=== PATIENT | female | born 1955 | race Caucasian/White ===

== ENCOUNTER 2019-02-08 09:21 | Outpatient (CLI) | payer OTHER ==
[2019-02-08 17:39] LABS: BUN - BLOOD UREA NITROGEN 28 mg/dL (6-20); CALCIUM 9.6 mg/dL (8.5-10.3); CARBON DIOXIDE - CO2 24 mmol/L (21-32); CHLORIDE 106 mmol/L (101-111); CHOL/HDL RATIO 3.7 (<4.4); CHOLESTEROL 151 mg/dL; CREATININE 0.9 mg/dL (0.4-1.0); GFR - MDRD 64 (>89); GLUCOSE 103 mg/dL (70-100); HDL CHOLESTEROL 41 mg/dL; LDL CHOLESTEROL,CALCULATED 88 mg/dL; LDL/HDL RATIO 2.1 (<4.4); SODIUM 143 mmol/L (135-145); VLDL CHOLESTEROL 22 mg/dL
[2019-02-08 18:20] LABS: HB2 TOTAL 13.6 g/dL; HEMOGLOBIN A1C 0.56 g/dL; HEMOGLOBIN A1C % 5.9 % (4.6-6.2)
== END 2019-02-08 09:22 | disposition home or self-care (01) ==
LOC: LAB.S 09:21
PROVIDERS: ATTEND Internal Medicine
DX: E11.9 Type 2 diabetes mellitus without complications (principal); E78.5 Hyperlipidemia, unspecified; I10 Essential (primary) hypertension
CPT/HCPCS: 36415; 80048; 80061; 83036; 83721

== ENCOUNTER 2019-02-19 12:49 | Outpatient (CLI) | payer OTHER | END 2019-02-19 12:50 | disposition home or self-care (01) | LOC: RT 12:49 | PROVIDERS: ATTEND Internal Medicine | DX: R07.9 Chest pain, unspecified (principal) | CPT/HCPCS: 93005 ==

== ENCOUNTER 2019-03-06 15:35 | Outpatient (CLI) | payer OTHER ==
[2019-03-06 18:48] LABS: CALCIUM 10.4 mg/dL (8.5-10.3); CREATININE 0.8 mg/dL (0.4-1.0)
== END 2019-03-06 15:36 | disposition home or self-care (01) ==
LOC: LAB.S 15:35
PROVIDERS: ATTEND Internal Medicine
DX: I10 Essential (primary) hypertension (principal)
CPT/HCPCS: 36415; 80048

== ENCOUNTER 2019-04-06 13:22 | Outpatient (CLI) | payer OTHER ==
[2019-04-06 18:34] LABS: HB2 TOTAL 13.4 g/dL; HEMOGLOBIN A1C 0.58 g/dL; HEMOGLOBIN A1C % 6.1 % (4.6-6.2)
[2019-04-07 10:33] LABS: HEPATITIS C ANTIBODY NON-REACTIVE (NON-REACTIVE)
== END 2019-04-06 13:23 | disposition home or self-care (01) ==
LOC: LAB.S 13:22
PROVIDERS: ATTEND Internal Medicine
DX: J30.9 Allergic rhinitis, unspecified (principal); R07.9 Chest pain, unspecified; J44.9 Chronic obstructive pulmonary disease, unspecified; F32.9 Major depressive disorder, single episode, unspecified; E11.9 Type 2 diabetes mellitus without complications; E78.5 Hyperlipidemia, unspecified; I10 Essential (primary) hypertension; G47.33 Obstructive sleep apnea (adult) (pediatric); I77.9 Disorder of arteries and arterioles, unspecified; Z11.59 Encounter for screening for other viral diseases
CPT/HCPCS: 36415; 83036; 86803

== ENCOUNTER 2019-07-17 10:14 | Outpatient (CLI) | payer BC, OTHER ==
[2019-07-17 16:38] VITALS: BP 85/46
--- NOTE | 2019-07-17 16:38 | SLEEP CARE CONSULTATION ---
Information from patient questionnaire entered by Norma Reid. I have reviewed and concur with the information entered by Norma Reid. This document represents the service I personally performed and the decisions made by me, Castillo Main MD, [facility]. History of Present Illness Reason for Visit: New patient, Previously diagnosed sleep apnea, sleep apnea on CPAP therapy Chief Complaint: reports: Insomnia, Unrefreshed sleep, Snoring, Excessive daytime sleepiness, Observed pauses in breathing, Fatigue, Frequent awakenings at night, Other (sleep apnea) Duration of Symptoms: 10 years Usual bedtime: 11pm - 12am Time it takes to fall asleep: from 15 mins to hours Snores at night: Yes Observed to quit breathing while asleep: Yes Sleeps alone due to snoring: No Number of times waking at night: 5-10 Reasons for waking at night: reports: Other (not sure) Toss, Turn, or Twitch while sleeping: No Recalls having dreams: Yes Usually gets out of bed at: 8-9 am Feels refreshed in the morning: No Morning headache: No Sleepy or fatigued during the day: Yes Ever fallen asleep while driving: No Takes day naps: Yes Dreams during day naps: Yes Prior sleep studies: Yes Year and Where: 5ish years ago, [facility] Additional HPI information: I had the pleasure of seeing Ms. Vargas today regarding obstructive sleep apnea- hypopnea. As you know, she is a 64 year old lady who was diagnosed with the sleep-disordered breathing at [facility] about 5 years ago. The results are not available. She was prescribed a CPAP device set at 5 8 cmH 2O. She uses the ResMed AirSense 10 AutoSet every night and all night. The compliance data show usage in 180 out of the past 180 nights, averaging 7.2 hours a night. The > 4 hour compliance rate for the past 30 days is 96%. The residual AHI is 0.9 and average air leak is 0 L/minute. She wears nasal pillows but complains that they hurt her nose. She gets his supplies from [facility] itself. She finds the treatment very helpful. - Parasomnia Symptoms Ever been unable to move upon waking from sleep: No Ever felt weak in the knees when startled or emotional: No Bothered by creepy, crawly, restless sensations in legs: No Problems with memory or concentration: Yes CPAP Compliance Data - Data Reviewed with Patient Average duration of nightly device use: 7.1 Compliance rate %: 96 (180 days) Current pressure setting (cmH2O): 5-8 Humidity settin Average residual AHI: 0.9 Subjective Initial [place] Sleepiness Scale score: 9 Past Medical History Past Medical History: reports: Hypertension, Diabetes, Depression, Other (stiff heart, PAD, Asthma/COPD, S/p tonsillectomy) Social History The patient's occupation is not employed. Patient is Single and lives in [place]. Have you smoked in the past 12 months: No Cigarettes per day (20/pack): 20 Years of smokin Quit date: 2011 Smoking Pack Years: 40.0 Alcohol use: Yes Alcohol amount and frequency: 3-4 a day Caffeine use: Yes Caffeine amount and frequency: 3-4 diet cokes and 1 coffee Family History Family history of sleep disordered breathing: Yes Family Hx Sleep Apnea: Sibling: Sleep apnea - Treated Allergies and Home Medications Known drug allergies: Yes Drug allergies reviewed: Yes Home medication list reviewed: Yes Allergy and home medication list: Current Medications: furosemide, Lipitor, lisinopril, metformin, sertraline, metoprolol, and aspirin. Allergies: no known drug allergies Review of Systems Weight gain over past 5 years: 40 Weight loss over past 5 years: 25 Cardiovascular: reports: high blood pressure Respiratory: reports: shortness of breath Gastrointestinal: reports: diarrhea Neurological: denies: headaches, seizure, head trauma, disorientation, speech dysfunction, gait or balance problems, fainting or unconsciousness, other Psychiatric: reports: depression Ear/Nose/Throat: reports: tonsillectomy, wisdom teeth removed Endocrine: reports: sluggishness Musculoskeletal: denies: joint pain, neck pain, back pain, joint swelling, muscle pain or cramping, mobility problems, other Immunologic: reports: sneezing Physical Exam Vital signs obtained and entered by: Dr. Main Blood Pressure: 85/46 Cuff size: regular Heart Rate: 53 O2 Saturation: 97 Height: 5 ft 5 in Weight: 250 lb Body Mass Index: 41.5 BMI Classification: Obesity Class 3 Neck circumference: 17 Mood/affect: Normal. HEENT: No craniofacial malformation Nostrils: patent to airflow Turbinates: normal Septum: midline Mouth and throat: narrow oropharynx Soft palate: normal Hard palate: normal Uvula: normal, long Uvula visualization: 25% Mallampati Class III Tongue: normal in size Tonsils: absent bilaterally Chin and jaw: normal size and position Neck: normal w/o lymphadenopathy or thyromegaly Heart: regular rate and rhythm Lungs: clear bilaterally Abdomen: soft, non-tender Extremities: no edema or clubbing Neurologic: intact, no focal deficits Impression and Plan IMPRESSION: 1. Obstructive Sleep Apnea-Hypopnea Syndrome, of unknown severity, as previously diagnosed. The patient has had good treatment compliance. The current pressure setting appears effective and comfortable. The patient experiences improvement on the treatment. Narrow oropharynx and obesity are common predisposing factors for obstructive sleep apnea-hypopnea syndrome. Pathophysiology of sleep- disordered breathing was discussed. I recommend proceeding to polysomnography to confirm the diagnosis and to assess severity. If he has significant sleep disordered breathing, a manual CPAP titration study will also be performed to find the optimal treatment pressure. I informed the patient of what the sleep studies involve and after some discussion, she agreed to proceed. Plan: 1. Prescription made for CPAP supplies, so that she may switch durable medical supplier. 2. Try Respironics DreamWear nasal cushion mask and ResMed N30i mask. 3. Avoid alcohol, sedative and muscle relaxant around bedtime. 4. Return for follow up in a year or earlier if there is any problem. I spent 100% of this visit face to face with the patient with greater than 50% of this was spent time counseling the patient and coordination of care.
== END 2019-07-17 10:15 | disposition home or self-care (01) ==
LOC: SC 10:14
PROVIDERS: ATTEND Internal Medicine Pulmonary Disease
DX: G47.33 Obstructive sleep apnea (adult) (pediatric) (principal); E66.9 Obesity, unspecified; Z68.41 Body mass index [BMI] 40.0-44.9, adult
CPT/HCPCS: 99203; 99212

== ENCOUNTER 2019-07-20 10:47 | Outpatient (CLI) | payer BC | END 2019-07-20 10:48 | disposition home or self-care (01) | LOC: LAB.S 10:47 | PROVIDERS: ATTEND Internal Medicine | DX: J30.9 Allergic rhinitis, unspecified (principal); R07.9 Chest pain, unspecified; J44.9 Chronic obstructive pulmonary disease, unspecified; F32.9 Major depressive disorder, single episode, unspecified; E11.9 Type 2 diabetes mellitus without complications; E78.5 Hyperlipidemia, unspecified; I10 Essential (primary) hypertension; G47.33 Obstructive sleep apnea (adult) (pediatric); I77.9 Disorder of arteries and arterioles, unspecified | CPT/HCPCS: 36415; 80048 ==

== ENCOUNTER 2019-07-24 08:00 | Outpatient (CLI) | payer BC ==
[2019-07-25 10:59] LABS: CALCIUM 9.1 mg/dL (8.5-10.3); CREATININE 0.7 mg/dL (0.4-1.0)
== END 2019-07-24 23:59 | disposition home or self-care (01) ==
LOC: LAB.S 08:00
PROVIDERS: ATTEND Internal Medicine
DX: J30.9 Allergic rhinitis, unspecified (principal); R07.9 Chest pain, unspecified; J44.9 Chronic obstructive pulmonary disease, unspecified; F32.9 Major depressive disorder, single episode, unspecified; E11.9 Type 2 diabetes mellitus without complications; E78.5 Hyperlipidemia, unspecified; I10 Essential (primary) hypertension; G47.33 Obstructive sleep apnea (adult) (pediatric); I77.9 Disorder of arteries and arterioles, unspecified
CPT/HCPCS: 80048

== ENCOUNTER 2019-08-02 10:59 | Outpatient (CLI) | payer BC | END 2019-08-02 11:00 | disposition home or self-care (01) | LOC: DI 10:59 | PROVIDERS: ATTEND Internal Medicine | DX: Z53.9 Procedure and treatment not carried out, unspecified reason (principal) ==

== ENCOUNTER 2019-08-15 13:18 | Outpatient (CLI) | payer BC ==
[~2019-08-15 13:18] MED LIST: ALBUTEROL NEB 2.5 MG/3 ML INH SCH
== END 2019-08-15 13:19 | disposition home or self-care (01) ==
LOC: RT 13:18
PROVIDERS: ATTEND Internal Medicine
DX: J44.9 Chronic obstructive pulmonary disease, unspecified (principal)
CPT/HCPCS: 94060; 94727; 94729

== ENCOUNTER 2019-08-15 14:52 | Outpatient (CLI) | payer BC ==
--- NOTE | 2019-08-20 09:43 | CT Report ---
Reason: EX SMOKER Procedure Date: 08/15/2019 Accession Number: [id number] / [id number] Procedure: CT - Low Dose Lung Cancer Screen CPT Code: Final Report FULL RESULT: EXAM CT LUNG SCREEN EXAM DATE: 08/15/2019 03:24 PM. HISTORY: 64-year-old patient with [id number]-[id number] smoking history. Currently smoking: No. Years since quittin. COMPARISON: THORAX 03 LOW DOSE LUNG WO (ADULT) 10/20/2016. TECHNIQUE: CT examination of the entire thorax without contrast was performed using low-dose technique. Thin section coronal, axial, sagittal and MIP axial images were obtained. In accordance with CT protocol optimization, one or more of the following dose reduction techniques were utilized for this exam: automated exposure control, adjustment of mA and/or KV based on patient size, or use of iterative reconstructive technique. FINDINGS: Nodules: Right upper lobe: None. Right middle lobe: Stable 3 mm perifissural nodule along lateral aspect of minor fissure on series 4 image 81. Stable 4 mm right middle lobe lung nodule on image 95. Right lower lobe: None. Left upper lobe: None. Left lower lobe: None. Emphysema: None. Pleura: Unremarkable. Aorta: Unremarkable. Mediastinum: A 1.2 x 1.0 cm low-attenuation region within the thoracic inlet to left of esophagus previously measured 1.4 x 1.2 cm. This could represent a stable small lymph node or potentially a duplication cyst. No adjacent soft tissue stranding. Coronary calcifications: Moderate. Other pulmonary findings: None. Other extrapulmonary findings: Midline upper abdominal hernia contains a portion of transverse colon. Although partially imaged, appearance is similar to prior CT. Left periaortic surgical clips, question prior left nephrectomy. Ovoid probable sebaceous cyst in the superficial upper back soft tissues near midline measures up to 2.1 cm, previously 3.5 cm. Interval decrease in size. A 1.1 cm fat-containing region previously measuring 1.3 cm posteromedial to spleen near the left hemidiaphragm has become partially calcified, question fat necrosis. No suspicious mass. IMPRESSION: Lung-RADS ASSESSMENT CATEGORY: 2 - benign appearance or behavior. Probability of malignancy: Less than 1%. RECOMMENDATION: Continue annual screening with LDCT in 12 months. RADIA
== END 2019-08-15 14:53 | disposition home or self-care (01) ==
LOC: DI 14:52
PROVIDERS: ATTEND Internal Medicine
DX: Z12.2 Encounter for screening for malignant neoplasm of respiratory organs (principal); J44.9 Chronic obstructive pulmonary disease, unspecified; Z87.891 Personal history of nicotine dependence
CPT/HCPCS: 94060; 94727; 94729; G0297

== ENCOUNTER 2019-08-22 10:31 | Outpatient (CLI) | payer BC ==
[2019-08-22 17:11] LABS: HEMOGLOBIN A1C 0.55 g/dL
== END 2019-08-22 10:32 | disposition home or self-care (01) ==
LOC: LAB.S 10:31
PROVIDERS: ATTEND Internal Medicine
DX: I10 Essential (primary) hypertension (principal); R07.9 Chest pain, unspecified; J44.9 Chronic obstructive pulmonary disease, unspecified; F32.9 Major depressive disorder, single episode, unspecified; E11.9 Type 2 diabetes mellitus without complications; E78.5 Hyperlipidemia, unspecified; G47.33 Obstructive sleep apnea (adult) (pediatric); I77.9 Disorder of arteries and arterioles, unspecified
CPT/HCPCS: 36415; 83036

== ENCOUNTER 2019-08-28 13:48 | Outpatient (CLI) | payer BC ==
--- NOTE | 2019-08-28 16:49 | Mammography Report ---
Reason: ABN MAMMO-RT BREAST MASS 6MO FU Procedure Date: 08/28/2019 Accession Number: [id number] / [id number] Procedure: [facility] - Diagnostic Dig Bilat CPT Code: Final Report FULL RESULT: EXAM: Diagnostic Dig Bilat DATE: 08/28/2019 2:57 PM CLINICAL HISTORY: Diagnostic examination. History of nulliparity. History of benign right breast biopsy. The examination is a 6 month follow-up of a right breast nodule. TECHNIQUE: (B) - Bilateral CC and MLO views were obtained. Right breast spot MLO and right breast ML images are obtained. COMPARISON: 12/26/2017 and 12/15/2017. PARENCHYMAL PATTERN: (D) - The breast(s) demonstrate(s) heterogeneously dense fibroglandular parenchyma. FINDINGS: The previously described 0.5 cm nodule in the posterior right breast in the lower outer quadrant is detected 12 cm deep to the nipple at the 6:00 position and characterized on MLO image 24 and CC image 21 as isodense with well defined border measuring up to 0.5 cm without significant interval change, probably benign. There are no suspicious masses, calcifications, or areas of distortion. IMPRESSION: Probably Benign. BI-RADS category 3. RECOMMENDATION: (6MOS) - Recommend 6 month follow-up exam. Right breast mammography. BI-RADS CATEGORY: (3) - Probably Benign. STANDARD QUALIFYING STATEMENTS: 1. This examination was not reviewed with the aid of Computer-Aided Detection (CAD). 2. A negative or benign imaging report should not preclude biopsy if clinically suspicious findings are present. 3. Dense breasts may obscure an underlying neoplasm. 4. This examination was reviewed with the aid of 3D breast imaging (tomosynthesis).
== END 2019-08-28 13:49 | disposition home or self-care (01) ==
LOC: DI 13:48
PROVIDERS: ATTEND Internal Medicine
DX: N63.13 Unspecified lump in the right breast, lower outer quadrant (principal)
CPT/HCPCS: 77066

== ENCOUNTER 2020-07-08 10:44 | Outpatient (CLI) | payer BC ==
--- NOTE | 2020-07-09 07:24 | Mammography Report ---
UNILATERAL RIGHT DIGITAL DIAGNOSTIC MAMMOGRAM 3D/2D: 07/08/2020 CLINICAL: Additional evaluation requested from prior study. Comparison is made to exams dated: 08/28/2019 mammogram, 12/26/2017 ultrasound, 12/26/2017 mammogram, and 12/15/2017 mammogram - [facility]. The tissue of right breast is heterogeneously de nse. This may lower the sensitivity of mammography. There is a stable benign 5 mm oval mass with a circumscribed margin in the right breast at 6 o'clock posterior depth. This mass has been stable dating back to the prior exam from 12/15/2017, and is the refore considered benign. No other significant masses or calcifications are seen in the breast. IMPRESSION: BENIGN There is no mammographic evidence of malignancy. A 1 year screening mammogram is recommended. This exam was interpreted at Station ID: [id number]. NOTE: For mammograms, a report in lay terms will be sent to the patient. Approximately 15% of breast malignancies will not be visualized mammographically. In the management of a palpable breast mass, a negative mammogram must not discourage biopsy of a clinically suspicious lesion. Electronically Signed By: Julius lynch/rachel:07/08/2020 13:07:39 ACR BI-RADS Category 2: Benign Finding(s) 3342F PARENCHYMAL PATTERN: (D) - The breast(s) demonstrate(s) heterogeneously dense fibroglandular master priest. BI-RADS CATEGORY: (2) - 2 RECOMMENDATION: (ANNUAL) - Recommend routine annual screening mammography. [id number] 1 year screening LATERALITY: (B)
== END 2020-07-08 10:45 | disposition home or self-care (01) ==
LOC: DI 10:44
PROVIDERS: ATTEND Internal Medicine
DX: N63.15 Unspecified lump in the right breast, overlapping quadrants (principal)

== ENCOUNTER 2020-08-19 19:44 | Outpatient (CLI) | payer BC | END 2020-08-19 19:45 | disposition short-term general hospital (02) | LOC: EMS 19:44 | PROVIDERS: ATTEND Emergency Medicine | DX: R06.09 Other forms of dyspnea (principal) | CPT/HCPCS: A0425; A0429 ==

== ENCOUNTER 2020-08-19 20:22 | Inpatient (IN) | payer BC ==
--- NOTE | 2020-08-19 20:31 | ED Physician Documentation ---
PD HPI DYSPNEA - Stated complaint Stated Complaint: SOA - History obtained from History obtained from: Patient, EMS - History of Present Illness Timing - onset: How many weeks ago (1) Timing - details: Gradual onset, Waxing and waning Pain level max: 0 Pain level now: 0 Associated symptoms: Cough, Wheezing. No: Fever (Tmax 99.5), Hemoptysis, Chest pain / discomfort, Palpitations, Diaphoresis, Bilateral edema, Unilateral edema Similar symptoms before: Diagnosis (COPD but has not had symptoms this severe before) Recently seen: Not recently seen - Additional information Additional information: BIBA for dyspnea. Patient has COPD but does not use oxygen at home. She occasionally uses an albuterol MDI (she estimates 1-2 x/week). Patient has had one week of gradually worsening dyspnea, particularly with exertion. Earlier today, she was helping clear branches from a downed tree from her yard and street, and this resulted in significantly worse dyspnea. She also has had increasingly frequent productive cough over past few days. Tmax 99.5. Medics found patient to have 80% pulse ox on room air, gave duoneb and applied 4.5 L/min NC oxygen, and her pulse ox improved to 95%. She rapidly dropped back down to 79% when oxygen was briefly stopped during transfer from EMS stretcher to ED stretcher, but improves to mid 90s with resumption of 4.5 L/min NC oxygen Review of Systems Constitutional: denies: Fever, Chills, Sweats Eyes: reports: Reviewed and negative Ears: reports: Reviewed and negative Nose: reports: Reviewed and negative Throat: reports: Reviewed and negative Cardiac: reports: Reviewed and negative Respiratory: reports: Dyspnea, Cough, Wheezing. denies: Hemoptysis GI: reports: Reviewed and negative : reports: Reviewed and negative Skin: reports: Reviewed and negative Musculoskeletal: reports: Reviewed and negative Neurologic: reports: Reviewed and negative PD PAST MEDICAL HISTORY - Past Medical History Past Medical History: Yes Cardiovascular: Hypertension, High cholesterol Respiratory: COPD Endocrine/Autoimmune: Type 2 diabetes - Present Medications Home Medications: Ambulatory Orders Medication Instructions Recorded Confirmed Albuterol Sulfate [Proair Hfa 1 puffs PRN 08/19/20 Inhaler] Aspirin [Aspirin EC] 81 mg PO DAILY 08/19/20 08/19/20 Lisinopril [Zestril] 40 mg PO DAILY 08/19/20 08/19/20 Metoprolol Succinate [Toprol Xl] 75 mg PO DAILY 08/19/20 08/19/20 Rosuvastatin Calcium [Crestor] 20 mg PO DAILY 08/19/20 08/19/20 Sertraline [Zoloft] 50 mg PO DAILY 08/19/20 08/19/20 metFORMIN [Glucophage] 500 mg PO DAILY 08/19/20 08/19/20 - Allergies Allergies/Adverse Reactions: Allergies Allergy/AdvReac Type Severity Reaction Status Date / Time No Known Drug Allergies Allergy Verified 08/19/20 20:31 - Social History Does the pt smoke?: No PD ED PE NORMAL - Vitals Vital signs reviewed: Yes - General General: Alert and oriented X 3, No acute distress, Well developed/nourished - HEENT HEENT: Moist mucous membranes - Neck Neck: Supple, no meningeal sign - Cardiac Cardiac: RRR, No murmur - Respiratory Respiratory: No respiratory distress - Abdomen Abdomen: Soft, Non tender, Other (obese) - Derm Derm: Normal color, Warm and dry - Extremities Extremities: No edema - Neuro Neuro: Alert and oriented X 3 PD ED PE EXPANDED - Respiratory Respiratory: Wheezing (course bilateral wheezing and rhonchi all lung ansari), Rhonchi Results - Vitals Vitals: Vital Signs - 24 hr 08/19/20 08/19/20 08/19/20 20:31 20:40 21:06 Temperature 37.3 C Heart Rate 95 91 79 Respiratory 24 16 27 H Rate Blood Pressure 185/102 H 153/110 H O2 Saturation 79 L 97 97 08/19/20 08/19/20 08/19/20 21:30 22:00 22:05 Temperature 37.3 C 37.3 C 37.3 C Heart Rate 82 84 85 Respiratory 26 H 22 21 Rate Blood Pressure 164/107 H 255/131 H 213/93 H O2 Saturation 97 97 97 08/19/20 08/19/20 22:30 23:00 Temperature 37.3 C 36.7 C Heart Rate 89 84 Respiratory 21 26 H Rate Blood Pressure 238/105 H 197/81 H O2 Saturation 97 96 Oxygen O2 Source Nasal cannula Oxygen Flow Rate 4.5 - EKG (time done) No standard instances Rate: Rate (enter#) (81) Rhythm: NSR Dunbar: Normal Intervals: Normal IL QRS: Normal Ischemia: Normal ST segments - Labs Labs: Laboratory Tests 08/19/20 08/19/20 08/19/20 21:07 21:07 21:07 WBC 11.6 H RBC 3.94 L Hgb 12.8 Hct 39.2 MCV 99.5 H MCH 32.5 H MCHC 32.7 RDW 12.8 Plt Count 146 MPV 9.7 Neut # (Auto) 9.6 H Lymph # (Auto) 1.0 L [place] # (Auto) 0.8 Eos # (Auto) 0.1 Baso # (Auto) 0.0 Absolute Nucleated RBC 0.00 Nucleated RBC % 0.0 Sodium 140 Potassium 3.6 Chloride 101 Carbon Dioxide 26 Anion Gap 13.0 BUN 22 H Creatinine 0.8 Estimated GFR (MDRD) 72 L Glucose 142 H Calcium 9.5 Total Bilirubin 1.2 H AST 29 ALT 31 Alkaline Phosphatase 62 Troponin I High Sens 11.6 B-Natriuretic Peptide Total Protein 7.4 Albumin 4.2 Globulin 3.2 Albumin/Globulin Ratio 1.3 Lipase 31 Nasal Adenovirus (PCR) Nasal B. parapertussis DNA (PCR) Nasal Coronavir 229E PCR Nasal Coronavir HKU1 PCR Nasal Coronavir NL63 PCR Nasal Coronavir OC43 PCR Nasal Enterovir/Rhinovir PCR Nasal Influenza B PCR Nasal Influenza A PCR Nasal Parainfluen 1 PCR Nasal Parainfluen 2 PCR Nasal Parainfluen 3 PCR Nasal Parainfluen 4 PCR Nasal RSV (PCR) Nasal B.pertussis DNA PCR Nasal C.pneumoniae (PCR) Krish Human Metapneumo PCR Nasal M.pneumoniae (PCR) Nasal SARS-CoV-2 (PCR) 08/19/20 08/19/20 21:10 22:40 WBC RBC Hgb Hct MCV MCH MCHC RDW Plt Count MPV Neut # (Auto) Lymph # (Auto) [place] # (Auto) Eos # (Auto) Baso # (Auto) Absolute Nucleated RBC Nucleated RBC % Sodium Potassium Chloride Carbon Dioxide Anion Gap BUN Creatinine Estimated GFR (MDRD) Glucose Calcium Total Bilirubin AST ALT Alkaline Phosphatase Troponin I High Sens B-Natriuretic Peptide 309 H Total Protein Albumin Globulin Albumin/Globulin Ratio Lipase Nasal Adenovirus (PCR) NOT DETECTED Nasal B. parapertussis DNA (PCR) NOT DETECTED Nasal Coronavir 229E PCR NOT DETECTED Nasal Coronavir HKU1 PCR NOT DETECTED Nasal Coronavir NL63 PCR NOT DETECTED Nasal Coronavir OC43 PCR NOT DETECTED Nasal Enterovir/Rhinovir PCR NOT DETECTED Nasal Influenza B PCR NOT DETECTED Nasal Influenza A PCR NOT DETECTED Nasal Parainfluen 1 PCR NOT DETECTED Nasal Parainfluen 2 PCR NOT DETECTED Nasal Parainfluen 3 PCR NOT DETECTED Nasal Parainfluen 4 PCR NOT DETECTED Nasal RSV (PCR) NOT DETECTED Nasal B.pertussis DNA PCR NOT DETECTED Nasal C.pneumoniae (PCR) NOT DETECTED Krish Human Metapneumo PCR NOT DETECTED Nasal M.pneumoniae (PCR) NOT DETECTED Nasal SARS-CoV-2 (PCR) NOT DETECTED - Rads (name of study) chest xray Radiology: Prelim report reviewed, See rad report PD MEDICAL DECISION MAKING - ED course Complexity details: reviewed results, re-evaluated patient, considered differential, d/w patient ED course: Significant hypoxia in this patient who describes only mild COPD history, has never required oxygen and only uses MDI 2-3 times per week on average. She improved significantly with supplemental oxygen, duoneb (en route) and MDI albuterol in ED. also given IV solu-medrol. CXR s/o pulmonary edema (radiologist's interpretation includes bilateral pneumonia on differential, but H+P are not suggestive of pneumonia). Given lasix subsequent to CXR results. She does not h/o CHF nor peripheral/pulmonary edema. Will admit, monitor for improvement as she diureses Departure - Departure Disposition: 66 [facility] DC/Xfer Clinical Impression: Hypoxia Pulmonary edema Qualifiers: Chronicity: acute Qualified Code(s): J81.0 - Acute pulmonary edema Condition: Stable Discharge Date/Time: 08/20/20 01:17
[2020-08-19] MEDS ORDERED: ALBUTEROL NEB 2.5 MG/3 ML INH STA (20:51)
[2020-08-19] MEDS ORDERED: methylPREDNISolone SUCCINATE 125 MG/2 ML VIAL IVP STA (20:51)
[2020-08-19 21:17] LABS: BASOPHILS % (AUTO) 0.3 %; EOSINOPHILS # (AUTO) 0.1 10^3/uL (0.0-0.7); EOSINOPHILS % (AUTO) 0.6 %; HCT - HEMATOCRIT 39.2 % (37.0-47.0); HGB - HEMOGLOBIN 12.8 g/dL (12.0-16.0); LYMPHOCYTES % (AUTO) 8.5 %; MEAN CORPUSCULAR HEMOGLOBIN 32.5 pg (27.0-31.0); MEAN CORPUSCULAR HGB CONC 32.7 g/dL (32.0-36.0); MEAN CORPUSCULAR VOLUME 99.5 fL (81.0-99.0); MEAN PLATELET VOLUME 9.7 fL (7.9-10.8); MONOCYTES # (AUTO) 0.8 10^3/uL (0.0-1.0); MONOCYTES % (AUTO) 6.9 %; NEUTROPHILS # (AUTO) 9.6 10^3/uL (1.5-6.6); NEUTROPHILS % (AUTO) 82.9 %; PLT - PLATELET COUNT 146 10^3/uL (130-450); RED BLOOD COUNT 3.94 10^6/uL (4.20-5.40); RED CELL DISTRIBUTION WIDTH 12.8 % (12.0-15.0); WHITE BLOOD COUNT 11.6 x10^3/uL (4.8-10.8)
[2020-08-19 21:26] LABS: ALBUMIN 4.2 g/dL (3.2-5.5); ALBUMIN/GLOBULIN RATIO 1.3 (1.0-2.2); BILIRUBIN,TOTAL 1.2 mg/dL (0.2-1.0); CALCIUM 9.5 mg/dL (8.5-10.3); CREATININE 0.8 mg/dL (0.4-1.0); POTASSIUM 3.6 mmol/L (3.5-5.0); TOTAL PROTEIN 7.4 g/dL (6.7-8.2)
[2020-08-19] MEDS ORDERED: ALBUTEROL 1 PUFF INH STA (21:27)
[2020-08-19] MEDS ORDERED: FUROSEMIDE 40 MG/4 ML VIAL IVP STA (22:06)
[2020-08-19 22:13] LABS: B. PARAPERTUSSIS- RESP PCR PAN NOT DETECTED; B. PERTUSSIS- RESP PCR PANEL NOT DETECTED; C. PNEUMONIAE- RESP PCR PANEL NOT DETECTED; CORONAVIRUS 229E-RESP PCR NOT DETECTED; CORONAVIRUS HKU1-RESP PCR NOT DETECTED; CORONAVIRUS NL63-RESP PCR NOT DETECTED; CORONAVIRUS OC43-RESP PCR NOT DETECTED; HUMAN METAPNEUMOVIRUS NOT DETECTED; INFLUENZA A- RESP PCR PANEL NOT DETECTED; INFLUENZA B - RESP PCR PANEL NOT DETECTED; M. PNEUMONIAE- RESP PCR PANEL NOT DETECTED; PARAINFLUENZA VIRUS 1 NOT DETECTED; PARAINFLUENZA VIRUS 2 NOT DETECTED; PARAINFLUENZA VIRUS 3 NOT DETECTED; PARAINFLUENZA VIRUS 4 NOT DETECTED; RHINOVIRUS/ENTEROVIRUS NOT DETECTED; RSV- RESP PCR PANEL NOT DETECTED; SARS-CoV-2 -RESP PCR PANEL NOT DETECTED
--- NOTE | 2020-08-19 22:45 | XRAY Report ---
PROCEDURE: Chest 1 View X-Ray INDICATIONS: chest pain TECHNIQUE: One view of the chest was acquired. COMPARISON: Chest CT without contrast, 08/15/2019. FINDINGS: Surgical changes and devices: None. Lungs and pleura: Bilateral interstitial and airspace infiltrates. No pleural effusions or pneumotho rax. Mediastinum: Mediastinal contours appear normal. Heart size is normal. Bones and chest wall: No suspicious bony lesions. Overlying soft tissues appear unremarkable. IMPRESSION: Bilateral interstitial and airspace infiltrates consistent with pulmonary edema or bilateral pneumoni a. Reviewed by: Yahaira Dickson MD on 08/19/2020 10:44 PM PST Approved by: Yahaira Dickson MD on 08/19/2020 10:44 PM PST Station ID: [id number]
[2020-08-19] MEDS ORDERED: NITROGLYCERIN 2% PASTE TOP STA (23:18)
[2020-08-19] MEDS ORDERED: ACETAMINOPHEN 325 MG TABLET PO PRN (23:22)
[2020-08-19] MEDS ORDERED: ONDANSETRON 4 MG/2 ML VIAL IVP PRN (23:22)
--- NOTE | 2020-08-19 23:26 | HISTORY & PHYSICAL EXAMINATION ---
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 She was outside cutting some wood that had fallen in her yard when she became dyspneic. She went into the house and checked her blood pressure and noticed it was very elevated so she called 911. She further explains that she had been mildly dyspneic earlier in the day but then it seemed to progressively worsen throughout the day. She has also not been feeling well for couple of days. She has been dyspneic with low energy. Her legs have also been more swollen for the past 1 week. She denies ever having COPD exacerbation and only uses her albuterol 1-2 times a week. When EMS arrived she was found to have a pulse ox of 80% on room air. She was given breathing treatment and placed on 4-1/2 L of oxygen via nasal cannula. Her oxygen saturation rapidly drops whenever she was off oxygen in the ED. Chest x-ray showed bilateral pulmonary edema. She was rhonchorous and had crackles upon presentation. She had a BNP of 309. She also had a systolic blood pressure as high as 230s. She was given Lasix 60 mg IV in the ED. By the time of my exam she was breathing more comfortably and speaking in full sentences. She had coarse breath sounds but no crackles or rhonchi. She denied chest pain, nausea or vomiting. She reported mild abdominal pain which had resolve by the time of arrival to the ED and chills. He was presented for admission for further treatment and work-up. History - Past Medical History Cardiovascular: reports: Hypertension, High cholesterol, Peripheral Vascular Disease Respiratory: reports: COPD Endocrine/Autoimmune: reports: Type 2 diabetes, Other (Obesity) GI: reports: Other (ventral hernia) : reports: Other (right solitary kidney) - Past Surgical History General: reports: Appendectomy, Other (partial colectomy) /DESK MAKER: reports: Hysterectomy, Oophrectomy, Other (left nephrectomy after renal infarct) Cardiovascular: reports: Other (?aortic stent) HEENT: reports: Tonsil/Adenoidectomy - Family & Social History Family History Comment/Other: Father had coronary artery disease and underwent a quadruple vessel bypass. He from dementia. Her mother from Alzheimer's. Social History Notes: She smoked 1 pack/day for 30 years. She quit smoking 9 years ago. She drinks 3-4 drinks most evenings. These are usually vodka mixed drinks. She denies any recreational substance use. - POLST Patient has POLST: No POLST Status: Full Code Meds/Allgy - Home Medications Home Medications: Ambulatory Orders Medication Instructions Recorded Confirmed Albuterol Sulfate [Proair Hfa 1 puffs PRN 08/19/20 Inhaler] Aspirin [Aspirin EC] 81 mg PO DAILY 08/19/20 08/19/20 Lisinopril [Zestril] 40 mg PO DAILY 08/19/20 08/19/20 Metoprolol Succinate [Toprol Xl] 75 mg PO DAILY 08/19/20 08/19/20 Rosuvastatin Calcium [Crestor] 20 mg PO DAILY 08/19/20 08/19/20 Sertraline [Zoloft] 50 mg PO DAILY 08/19/20 08/19/20 metFORMIN [Glucophage] 500 mg PO DAILY 08/19/20 08/19/20 - Allergies Allergies/Adverse Reactions: Allergies Allergy/AdvReac Type Severity Reaction Status Date / Time No Known Drug Allergies Allergy Verified 08/19/20 20:31 Review of Systems - Constitutional Constitutional: reports: Fatigue, Chills. denies: Fever - Eyes Eyes: denies: Pain, Irritation - Ears, Nose & Throat Ears, Nose & Throat: denies: Ear pain, Sore throat - Cardiovascular Cariovascular: reports: Edema, Exertional dyspnea. denies: Irregular heart rate, Chest pain, Lightheadedness, Syncope - Respiratory Respiratory: reports: SOB at rest, SOB with exertion. denies: Cough, Sputum production, Wheezing - Gastrointestinal Gastrointestinal: reports: Abdominal pain, Diarrhea. denies: Abdominal distention, Constipation, Nausea, Vomiting - Genitourinary Genitourinary: denies: Dysuria, Frequency, Urgency, Hematuria - Musculoskeletal Musculoskeletal: denies: Muscle pain, Back pain, Muscle aches - Integumentary Integumentary: denies: Rash, Pruritis, Lesions, Dryness - Neurological Neurological: denies: Focal weakness, Headache, Dizziness - Psychiatric Psychiatric: denies: Depression, Anxiety - Endocrine Endocrine: denies: Polyuria, Polydypsia - Hematologic/Lymphatic Hematologic/Lymphatic: denies: Anemia, Bruising, Petechiae Prior Level of Functionality: She is independent of activities of daily living Exam - Vital Signs Vital Signs: Vital Signs x48h Temp Pulse Resp BP Pulse Ox 08/19/20 23:00 36.7 C 84 26 H 197/81 H 96 08/19/20 22:30 37.3 C 89 21 238/105 H 97 08/19/20 22:05 37.3 C 85 21 213/93 H 97 08/19/20 22:00 37.3 C 84 22 255/131 H 97 08/19/20 21:30 37.3 C 82 26 H 164/107 H 97 08/19/20 21:06 79 27 H 97 08/19/20 20:40 91 16 153/110 H 97 08/19/20 20:31 37.3 C 95 24 185/102 H 79 L - Physical Exam General Appearance: positive: Alert, Mild distress Eyes Bilateral: positive: PERRL, EOMI ENT: positive: No signs of dehydration Neck: positive: No JVD, Trachea midline Respiratory: positive: Other (Coarse breath sounds. Mild respiratory distress). negative: Wheezes, Rales, Rhonchi Cardiovascular: positive: Regular rate & rhythm, Systolic murmur. negative: Irregularly irregular, Tachycardia Abdomen: positive: Non-tender, Nml bowel sounds, Other (obese abdomen). negative: Guarding, Rebound Skin: positive: No rash, Warm, Dry Extremities: positive: Non-tender, Full ROM, Nml appearance, No pedal edema Neurologic/Psychiatric: positive: Oriented x3, Mood/affect nml Conclusion/Plan - Problem List (1) Pulmonary edema Conclusion/Plan: Etiology yet to be determined. Suspect cardiac cause. Patient was given Lasix 60 mg IV x1 in the ED. We will continue Lasix 20 mg IV twice daily starting tomorrow morning. Daily weights. 2D echocardiogram ordered for the morning. Patient was placed on 2 L total daily fluid restriction Nitropaste applied in the ED. Will continue. Qualifiers: Chronicity: acute Qualified Code(s): J81.0 - Acute pulmonary edema (2) Hypertensive urgency Conclusion/Plan: Likely related to flash pulmonary edema. Blood pressure was as high as 230s. Patient has a Nitropaste patch in place on her chest. Labetalol 10 mg IV every 4 hours as needed for systolic blood pressure greater than 160. Lasix 20 mg IV twice daily. Patient is on metoprolol XL daily and lisinopril. Will resume once verified. (3) Acute respiratory failure with hypoxia Conclusion/Plan: Likely related to pulmonary edema. Patient is on supplemental oxygen via nasal cannula. Patient given Lasix 60 mg IV x1 in the ED. Lasix 20 mg IV daily ordered. Anticipating further improvement with diuresing. (4) Solitary right kidney Conclusion/Plan: Patient had a left nephrectomy after it was found to be from a presumed infarct. Suspect vascular disease. Patient reports having a stent in her abdominal aorta Patient's GFR is 72 with a creatinine of 0.8. We will monitor patient's renal function closely especially in light of active diuresing. We will avoid any potential nephrotoxic agents. (5) Diabetes mellitus type 2 in obese Conclusion/Plan: We will hold Metformin. Sliding scale insulin ordered. Accu-Cheks before every meal and at bedtime. Hemoglobin A1c ordered. (6) Hyperlipidemia Conclusion/Plan: Will resume rosuvastatin equivalent once verified. (8) Morbid obesity Conclusion/Plan: BMI of 40. (9) COPD (chronic obstructive pulmonary disease) Conclusion/Plan: Not in exacerbation. We will order DuoNeb as needed. - Lab Results Fish Bones: 08/20/20 03:15 08/20/20 03:15 Core Measures - Anticipated LOS I expect patient to be DC'd or transferred within 96 hours.: Yes - DVT/VTE - Prophylaxis VTE/DVT Device ordered at admit?: Yes VTE/DVT Prophylaxis med ordered at admit?: Yes
[2020-08-19] MEDS ORDERED: LABETALOL 20 MG/4 ML SYRINGE IVP PRN (23:29)
[2020-08-20] MEDS ORDERED: IPRATROPIUM/ALBUTEROL 3 ML NEB INH PRN (00:40)
[2020-08-20] MEDS: SODIUM CHLORIDE FLUSH 0.9% 10 ML SYRINGE IVP SCH ×3 (01:30→17:05)
[2020-08-20 03:26] LABS: BASOPHILS % (AUTO) 0.2 %; HCT - HEMATOCRIT 38.1 % (37.0-47.0); HGB - HEMOGLOBIN 12.1 g/dL (12.0-16.0); LYMPHOCYTES # (AUTO) 0.5 10^3/uL (1.5-3.5); LYMPHOCYTES % (AUTO) 4.9 %; MEAN CORPUSCULAR HEMOGLOBIN 32.2 pg (27.0-31.0); MEAN CORPUSCULAR HGB CONC 31.8 g/dL (32.0-36.0); MEAN CORPUSCULAR VOLUME 101.3 fL (81.0-99.0); MEAN PLATELET VOLUME 9.4 fL (7.9-10.8); MONOCYTES # (AUTO) 0.1 10^3/uL (0.0-1.0); MONOCYTES % (AUTO) 1.4 %; NEUTROPHILS # (AUTO) 9.4 10^3/uL (1.5-6.6); NEUTROPHILS % (AUTO) 92.7 %; PLT - PLATELET COUNT 137 10^3/uL (130-450); RED BLOOD COUNT 3.76 10^6/uL (4.20-5.40); RED CELL DISTRIBUTION WIDTH 12.8 % (12.0-15.0); WHITE BLOOD COUNT 10.2 x10^3/uL (4.8-10.8)
[2020-08-20 03:33] LABS: CALCIUM 9.4 mg/dL (8.5-10.3); CREATININE 0.9 mg/dL (0.4-1.0); POTASSIUM 3.9 mmol/L (3.5-5.0)
[2020-08-20] MEDS: FUROSEMIDE 20 MG/2 ML VIAL IVP SCH ×2 (06:43→14:19)
[2020-08-20] MEDS: SODIUM CHLORIDE FLUSH 0.9% 10 ML SYRINGE IVP PRN ×2 (06:56→14:19)
[2020-08-20] MEDS: PANTOPRAZOLE 40 MG TABLET PO SCH (07:03)
[2020-08-20] MEDS: ENOXAPARIN 40 MG/0.4 ML SYRINGE SUBQ SCH (08:24)
[2020-08-20] MEDS: INSULIN ASPART 300 UNIT/3 ML PEN SUBQ SCH ×4 (08:24→20:44)
[2020-08-20] MEDS ORDERED: METOPROLOL SUCCINATE 50 MG TABLET PO SCH (10:00)
[2020-08-20] MEDS: SERTRALINE 50 MG TABLET PO SCH (10:41)
[2020-08-20] MEDS: ASPIRIN EC 81 MG TABLET PO SCH (10:41)
--- NOTE | 2020-08-20 10:48 | PROVIDER PROGRESS NOTE ---
Assessment/Plan - Problem List (1) Pulmonary edema Qualifiers: Chronicity: acute Qualified Code(s): J81.0 - Acute pulmonary edema Assessment/Plan: Troponins were neg for an RI. There has been no dysrhythmia to explain new CHF. Likely the poorly controlled HTN was the cause of pulm eedma. Awaiting Echo for further diagnoses and management decisions. Continue Lasix iv bid for another 1-2 days. Continue supplemental oxygen, wean down as tolerated. (2) Acute diastolic heart failure due to valvular disease Assessment/Plan: Echo done today shows preserved LVEF, but grade 2 diastolic dysfunction and she has moderate aortic stenosis. The patient admits that she has known about a murmur and sees Dr. Arita, Urgent Care Nurse Practitioner yearly for the past 2 years and a different Urgent Care Nurse Practitioner yearly for the previous 6 years. She will need closer Cardiology follow-up, probably every 6 months. I told her that she is heading for aortic valve intervention, possibly in the next few years. (3) Hypertensive urgency Assessment/Plan: Admits that she was not monitoring her blood pressure Uncontrolled HTN has improved, BP better today. Will continue her home BP meds, and will continue NTP topical if needed after resukts on Echo for BP and will continue to use iv Lasix for 1-2 days. (4) Diabetes mellitus type 2 in obese Assessment/Plan: Awaiting A1c. Continue cc diet and ss Insulin coverage. She also needs weight control. (5) Solitary right kidney Assessment/Plan: This is due to renal artery steosis ands infarct of one kidney, as per Hx. Avoid nephrotoxins, watch Lasix dose carefully. At discharge, will plan to use Lasix only as needed for leg edema or orthopnea. Follow BMP daily. (6) PVD (peripheral vascular disease) Assessment/Plan: She had renal artery stenosis. Resume her daily ASA and (her own) Crestor dose. (7) COPD (chronic obstructive pulmonary disease) Assessment/Plan: She is not in COPD exacerbation (8) Morbid obesity with BMI of 45.0-49.9, adult Assessment/Plan: As per Hx. Weight loss advised. - Current Meds Current Meds: Current Medications Generic Name Dose Route Start Last Admin Trade Name Freq PRN Reason Stop Dose Admin Acetaminophen 650 mg 08/19/20 23:22 08/20/20 08:24 Acetaminophen 325 Mg Tablet PO 650 mg Q4HR PRN Administration Pain 1 to 4 Aspirin 81 mg 08/20/20 10:00 08/20/20 10:41 Aspirin Ec 81 Mg Tablet PO 81 mg DAILY LUCRETIA Administration Enoxaparin Sodium 40 mg 08/20/20 09:00 08/20/20 08:24 Enoxaparin 40 Mg/0.4 Ml Syringe SUBQ 40 mg DAILY LUCRETIA Administration Furosemide 20 mg 08/20/20 06:00 08/20/20 06:43 Furosemide 20 Mg/2 Ml Vial IVP 20 mg BIDDIURETIC LUCRETIA Administration Insulin Aspart 1 - 5 unit 08/20/20 08:00 08/20/20 08:24 Insulin Aspart 300 Unit/3 Ml Pen SUBQ 2 unit 0800,1200,1700,2100 LUCRETIA Administration Protocol Labetalol HCl 10 mg 08/19/20 23:29 08/20/20 02:03 Labetalol 20 Mg/4 Ml Syringe IVP 10 mg Q4H PRN Administration PER PHYSICIAN ORDER Metoprolol Succinate 75 mg 08/20/20 10:00 08/20/20 10:40 Metoprolol Succinate 50 Mg Tablet PO 75 mg DAILY LUCRETIA Administration Pantoprazole Sodium 40 mg 08/20/20 07:00 08/20/20 07:03 Pantoprazole 40 Mg Tablet PO Not Given QDAC ULCRETIA Sertraline HCl 50 mg 08/20/20 10:00 08/20/20 10:41 Sertraline 50 Mg Tablet PO 50 mg DAILY LUCRETIA Administration Sodium Chloride 10 ml 08/19/20 23:22 08/20/20 06:56 Sodium Chloride Flush 0.9% 10 Ml Syringe IVP 10 ml PRN PRN Administration NEEDED PER PROVIDER ORDERS Sodium Chloride 10 ml 08/20/20 01:00 08/20/20 08:25 Sodium Chloride Flush 0.9% 10 Ml Syringe IVP 10 ml 0100,0900,1700 LUCRETIA Administration - Lab Result Fish Bone Diagrams: 08/20/20 03:15 08/20/20 03:15 - Additional Planning My Orders: My Active Orders 08/20/20 03:15 BNP - B-NATRIURETIC PEPTIDE [IAI] Routine 08/20/20 09:30 Lisinopril [Zestril] 40 mg PO DAILY 08/20/20 10:00 Aspirin EC [Ecotrin] 81 mg PO DAILY Metoprolol Succinate [Toprol Xl] 75 mg PO DAILY Sertraline [Zoloft] 50 mg PO DAILY 08/20/20 21:00 Rosuvastatin Calcium [Crestor] 20 mg PO QPM Subjective - Subjective Patient Reports: Feeling Better Nursing Reports: Other (FIO2 needs slightly lower) Objective Vital Signs: Vital Signs - 24 hr 08/19/20 08/19/20 08/19/20 20:31 20:40 21:06 Temperature 37.3 C Heart Rate 95 91 79 Heart Rate [ Monitoring electrodes] Respiratory 24 16 27 H Rate Blood Pressure 185/102 H 153/110 H Blood Pressure [Left Radial artery] Blood Pressure [Right Ankle] Blood Pressure [Right Brachial artery] O2 Saturation 79 L 97 97 08/19/20 08/19/20 08/19/20 21:30 22:00 22:05 Temperature 37.3 C 37.3 C 37.3 C Heart Rate 82 84 85 Heart Rate [ Monitoring electrodes] Respiratory 26 H 22 21 Rate Blood Pressure 164/107 H 255/131 H 213/93 H Blood Pressure [Left Radial artery] Blood Pressure [Right Ankle] Blood Pressure [Right Brachial artery] O2 Saturation 97 97 97 08/19/20 08/19/20 08/19/20 22:30 23:00 23:30 Temperature 37.3 C 36.7 C 36.7 C Heart Rate 89 84 79 Heart Rate [ Monitoring electrodes] Respiratory 21 26 H 23 Rate Blood Pressure 238/105 H 197/81 H 197/81 H Blood Pressure [Left Radial artery] Blood Pressure [Right Ankle] Blood Pressure [Right Brachial artery] O2 Saturation 97 96 100 08/20/20 08/20/20 08/20/20 00:00 00:30 01:15 Temperature 36.7 C 36.7 C 37.1 C Heart Rate 86 76 Heart Rate [ 74 Monitoring electrodes] Respiratory 24 27 H 22 Rate Blood Pressure 207/100 H 195/84 H Blood Pressure 175/63 H [Left Radial artery] Blood Pressure [Right Ankle] Blood Pressure [Right Brachial artery] O2 Saturation 97 97 96 08/20/20 08/20/20 08/20/20 02:04 02:05 02:10 Temperature Heart Rate Heart Rate [ 73 68 77 Monitoring electrodes] Respiratory Rate Blood Pressure Blood Pressure [Left Radial artery] Blood Pressure 173/67 H 181/60 H 164/63 H [Right Ankle] Blood Pressure [Right Brachial artery] O2 Saturation 08/20/20 08/20/20 08/20/20 02:20 02:30 02:47 Temperature Heart Rate Heart Rate [ 71 79 77 Monitoring electrodes] Respiratory Rate Blood Pressure Blood Pressure 186/76 H [Left Radial artery] Blood Pressure 163/60 H 181/81 H [Right Ankle] Blood Pressure [Right Brachial artery] O2 Saturation 08/20/20 08/20/20 08/20/20 03:02 05:00 07:24 Temperature 36.5 C 36.4 C L Heart Rate Heart Rate [ 74 77 72 Monitoring electrodes] Respiratory 16 20 Rate Blood Pressure Blood Pressure 188/72 H [Left Radial artery] Blood Pressure 144/71 H 170/68 H [Right Ankle] Blood Pressure [Right Brachial artery] O2 Saturation 94 97 08/20/20 08/20/20 08:22 10:39 Temperature Heart Rate Heart Rate [ 72 Monitoring electrodes] Respiratory 20 19 Rate Blood Pressure Blood Pressure [Left Radial artery] Blood Pressure [Right Ankle] Blood Pressure 154/87 H 148/80 H [Right Brachial artery] O2 Saturation 97 95 Oxygen O2 Source Nasal cannula Oxygen Flow Rate 4.5 I&O (Last 24 Hrs): Intake and Output Totals x24h 08/18/20 08/19/20 08/20/20 23:59 23:59 23:59 Intake Total 240 Output Total 1700 Balance -1460 General: Alert, Other (Obese) HEENT: Atraumatic, Other (Wearing O2) Neck: Supple, No JVD Neuro: Alert, Non Focal Cardiovascular: Regular rate, Other (3/6 syst murmur, loudest at base) Respiratory: No respiratory distress, Other (L basal rales, otherwise clear ling ansari) Abdomen: Soft, Other (Obese with pannus) Extremities: Other (1+ ankle edema) - Results Results: Laboratory Results WBC 10.2 x10^3/uL (4.8-10.8) 08/20/20 03:15 RBC 3.76 10^6/uL (4.20-5.40) L 08/20/20 03:15 Hgb 12.1 g/dL (12.0-16.0) 08/20/20 03:15 Hct 38.1 % (37.0-47.0) 08/20/20 03:15 MCV 101.3 fL (81.0-99.0) H 08/20/20 03:15 MCH 32.2 pg (27.0-31.0) H 08/20/20 03:15 MCHC 31.8 g/dL (32.0-36.0) L 08/20/20 03:15 RDW 12.8 % (12.0-15.0) 08/20/20 03:15 Plt Count 137 10^3/uL (130-450) 08/20/20 03:15 MPV 9.4 fL (7.9-10.8) 08/20/20 03:15 Neut # (Auto) 9.4 10^3/uL (1.5-6.6) H 08/20/20 03:15 Lymph # (Auto) 0.5 10^3/uL (1.5-3.5) L 08/20/20 03:15 Taliaferro # (Auto) 0.1 10^3/uL (0.0-1.0) 08/20/20 03:15 Eos # (Auto) 0.0 10^3/uL (0.0-0.7) 08/20/20 03:15 Baso # (Auto) 0.0 10^3/uL (0.0-0.1) 08/20/20 03:15 Absolute Nucleated RBC 0.00 x10^3/uL 08/20/20 03:15 Nucleated RBC % 0.0 /100WBC 08/20/20 03:15 Sodium 140 mmol/L (135-145) 08/20/20 03:15 Potassium 3.9 mmol/L (3.5-5.0) 08/20/20 03:15 Chloride 100 mmol/L (101-111) L 08/20/20 03:15 Carbon Dioxide 27 mmol/L (21-32) 08/20/20 03:15 Anion Gap 13.0 (6-13) 08/20/20 03:15 BUN 26 mg/dL (6-20) H 08/20/20 03:15 Creatinine 0.9 mg/dL (0.4-1.0) 08/20/20 03:15 Estimated GFR (MDRD) 63 (>89) L 08/20/20 03:15 Glucose 201 mg/dL (70-100) H 08/20/20 03:15 Calcium 9.4 mg/dL (8.5-10.3) 08/20/20 03:15 Total Bilirubin 1.2 mg/dL (0.2-1.0) H 08/19/20 21:07 AST 29 IU/L (10-42) 08/19/20 21:07 ALT 31 IU/L (10-60) 08/19/20 21:07 Alkaline Phosphatase 62 IU/L (42-121) 08/19/20 21:07 Troponin I High Sens 8.8 ng/L (2.3-14.8) 08/20/20 08:21 B-Natriuretic Peptide 309 pg/mL (5-100) H 08/19/20 22:40 Total Protein 7.4 g/dL (6.7-8.2) 08/19/20 21:07 Albumin 4.2 g/dL (3.2-5.5) 08/19/20 21:07 Globulin 3.2 g/dL (2.1-4.2) 08/19/20 21:07 Albumin/Globulin Ratio 1.3 (1.0-2.2) 08/19/20 21:07 Lipase 31 U/L (22-51) 08/19/20 21:07 Nasal Adenovirus (PCR) NOT DETECTED 08/19/20 21:10 Nasal B. parapertussis DNA (PCR) NOT DETECTED 08/19/20 21:10 Nasal Coronavir 229E PCR NOT DETECTED 08/19/20 21:10 Nasal Coronavir HKU1 PCR NOT DETECTED 08/19/20 21:10 Nasal Coronavir NL63 PCR NOT DETECTED 08/19/20 21:10 Nasal Coronavir OC43 PCR NOT DETECTED 08/19/20 21:10 Nasal Enterovir/Rhinovir PCR NOT DETECTED 08/19/20 21:10 Nasal Influenza B PCR NOT DETECTED 08/19/20 21:10 Nasal Influenza A PCR NOT DETECTED 08/19/20 21:10 Nasal Parainfluen 1 PCR NOT DETECTED 08/19/20 21:10 Nasal Parainfluen 2 PCR NOT DETECTED 08/19/20 21:10 Nasal Parainfluen 3 PCR NOT DETECTED 08/19/20 21:10 Nasal Parainfluen 4 PCR NOT DETECTED 08/19/20 21:10 Nasal RSV (PCR) NOT DETECTED 08/19/20 21:10 Nasal B.pertussis DNA PCR NOT DETECTED 08/19/20 21:10 Nasal C.pneumoniae (PCR) NOT DETECTED 08/19/20 21:10 Krish Human Metapneumo PCR NOT DETECTED 08/19/20 21:10 Nasal M.pneumoniae (PCR) NOT DETECTED 08/19/20 21:10 Nasal SARS-CoV-2 (PCR) NOT DETECTED 08/19/20 21:10
[2020-08-20 11:10] LABS: ESTIMATED AVERAGE GLUCOSE 128 mg/dL (70-100); HEMOGLOBIN A1c% 6.1 % (4.27-6.07)
--- NOTE | 2020-08-20 11:26 | PHARMACY PROGRESS NOTE ---
- Best Possible Medication History Admit Date and Time: 08/19/20 5135 Processed by: Pharmacy Medication History completed: Yes Patient Interview: Completed (Pt interviewed by Abel) Secondary Source(s): Pharmacy records As the person ultimately responsible for medication therapy, providers are able to order a medication from an existing home medication list in [facility] via the "Reconcile Routine" prior to Confirmation of that medication by care support representative. Such practice is discouraged except when the physician, in their clinical judgment, deems that a medical need exists for a medication without regard to previous use.
[2020-08-20] MEDS ORDERED: ATORVASTATIN 40 MG TABLET PO SCH ×2 (21:00)
[2020-08-21 04:43] LABS: BASOPHILS % (AUTO) 0.5 %; EOSINOPHILS # (AUTO) 0.1 10^3/uL (0.0-0.7); EOSINOPHILS % (AUTO) 1.4 %; HCT - HEMATOCRIT 36.1 % (37.0-47.0); HGB - HEMOGLOBIN 11.5 g/dL (12.0-16.0); LYMPHOCYTES # (AUTO) 1.7 10^3/uL (1.5-3.5); LYMPHOCYTES % (AUTO) 19.2 %; MEAN CORPUSCULAR HEMOGLOBIN 32.5 pg (27.0-31.0); MEAN CORPUSCULAR HGB CONC 31.9 g/dL (32.0-36.0); MEAN PLATELET VOLUME 9.8 fL (7.9-10.8); MONOCYTES # (AUTO) 0.8 10^3/uL (0.0-1.0); MONOCYTES % (AUTO) 8.9 %; NEUTROPHILS # (AUTO) 6.1 10^3/uL (1.5-6.6); NEUTROPHILS % (AUTO) 69.4 %; PLT - PLATELET COUNT 143 10^3/uL (130-450); RED BLOOD COUNT 3.54 10^6/uL (4.20-5.40); RED CELL DISTRIBUTION WIDTH 13.1 % (12.0-15.0); WHITE BLOOD COUNT 8.8 x10^3/uL (4.8-10.8)
[2020-08-21 04:52] LABS: CALCIUM 9.2 mg/dL (8.5-10.3); CREATININE 0.8 mg/dL (0.4-1.0); POTASSIUM 3.4 mmol/L (3.5-5.0)
[2020-08-21] MEDS: FUROSEMIDE 20 MG/2 ML VIAL IVP SCH (06:00)
[2020-08-21] MEDS: SODIUM CHLORIDE FLUSH 0.9% 10 ML SYRINGE IVP PRN (06:01)
[2020-08-21] MEDS: PANTOPRAZOLE 40 MG TABLET PO SCH (06:40)
[2020-08-21] MEDS: INSULIN ASPART 300 UNIT/3 ML PEN SUBQ SCH ×2 (07:49→12:26)
[2020-08-21] MEDS ORDERED: POTASSIUM CHLORIDE 20 MEQ TABLET PO SCH (08:06)
[2020-08-21] MEDS: ENOXAPARIN 40 MG/0.4 ML SYRINGE SUBQ SCH (08:43)
[2020-08-21] MEDS: SERTRALINE 50 MG TABLET PO SCH (08:43)
[2020-08-21] MEDS: ASPIRIN EC 81 MG TABLET PO SCH (08:43)
[2020-08-21] MEDS: SODIUM CHLORIDE FLUSH 0.9% 10 ML SYRINGE IVP SCH ×2 (08:44)
[2020-08-21] MEDS ORDERED: lisinopriL 20 MG TABLET PO SCH ×2 (09:00)
[2020-08-21] MEDS ORDERED: METOPROLOL SUCCINATE 50 MG TABLET PO SCH (09:00)
[2020-08-21 11:13] VITALS: BP 148/70
--- NOTE | 2020-08-21 13:48 | Discharge Plan ---
Discharge Plan Problem Reviewed?: Yes Disposition: Home, Self Care Condition: Stable Prescriptions: Potassium Chloride [K-Dur] 20 meq PO Q48H #15 tab Furosemide [Lasix] 20 mg PO Q48H #15 tab Metoprolol Succinate [Toprol Xl] 100 mg PO DAILY #60 tab.sr Lisinopril [Zestril] 20 mg PO DAILY #15 tab Diet: Low Sodium Activity Restrictions: Activity as Tolerated Shower Restrictions: No Driving Restrictions: No Instruction Topics: Heart Failure Meds Control, Heart Failure Warning Signs, Heart Failure Tracking Weight, Heart Failure Diet Changes Health Concerns: You were admitted with fluid in your lungs and water retention in your ankles and found to have congestive heart failure (CHF) caused by worsening of your aor tic valve (which has caused your lifelong heart murmur). Your medications have now been adjusted to manage CHF. Please have sooner than once yearly follow-up with your Sales Service Assistant. Plan of Treatment: As above. Care Goals: Improvement in symptoms and stabilization are the goals. Assessment: The patient understands and is agreeable with the plan. No Smoking: If you smoke, Please STOP! Call for help. Follow-up with: REE CROSS MD [Primary Care Provider] -
--- NOTE | 2020-08-21 14:10 | DISCHARGE SUMMARY ---
Discharge Summary Admit Date: 08/19/20 Discharge Date: 08/21/20 Discharging Provider: Dr Ines Gomez Primary Care Provider: Dr Maura Tapia Code Status: Attempt Resuscitation Condition at Discharge: Stable Discharge Disposition: 01 Home, Self Care - HPI History of Present Illness: From the admission H&P of Dr eHnry Conroy: Patient is a 65-year-old female with medical history significant for a right solitary kidney likely secondary to renal artery stenosis and left renal infarct, diabetes mellitus, hypertension, hyperlipidemia and COPD who presented to the ED via EMS with dyspnea and hypoxia. She was outside cutting some wood that had fallen in her yard when she became dyspneic. She went into the house and checked her blood pressure and noticed it was very elevated so she called 911. She further explains that she had been mildly dyspneic earlier in the day but then it seemed to progressively worsen throughout the day. She has also not been feeling well for couple of days; she has been dyspneic with low energy. Her legs have also been more swollen for the past 1 week. She denies ever having a COPD exacerbation and only uses her Albuterol 1-2 times a week. When EMS arrived she was found to have a pulse ox of 80% on room air. She was given breathing treatment and placed on 4-1/2 L of oxygen via nasal cannula. Her oxygen saturation rapidly drops whenever she was off oxygen in the ED. Chest x-ray showed bilateral pulmonary edema. She was rhonchorous and had crackles upon presentation. She had a BNP of 309. She also had a systolic blood pressure as high as 230s. She was given Lasix 60 mg IV in the ED. By the time of my exam she was breathing more comfortably and speaking in full sentences. She had coarse breath sounds but no crackles or rhonchi. She denied chest pain, nausea or vomiting. She reported mild abdominal pain which had resolve by the time of arrival to the ED and chills. She was presented for admission for further treatment and work-up. - HOSPITAL COURSE Hospital Course: (1) Pulmonary edema She was continued on supplemental oxygen, which was weaned down to room air in several days. She was started on Lasix iv bid which helped her improve daily. Her troponins were neg for an AL. There was no dysrhythmia to explain new CHF. Likely the poorly controlled HTN was the cause of pulm eedma. She had a resting Echo done which showed preserved LVEF with diastolic dysfunction, Grade II. At discharge, she was prescribed new daily Lasix 20 mg with KCl, to take prn orthopnea or leg edema (possibly 1-2 times per week), and Metoprolol was increased from 75 mg daily to 100 mg daily. (2) Acute diastolic heart failure due to valvular disease Echo done that showed preserved LVEF, but grade II diastolic dysfunction and she has moderate aortic stenosis. The patient admitted that she has known about a murmur and sees Dr. Airta, [facility] yearly for the past 2 years and a different [facility] yearly for 6 years prior to that. Her previous Metoprolol was increased from 75 mg daily to 100 mg daily. (3) Aortic stenosis, moderate She will need closer Cardiology follow-up, probably every 6 months. I told her that she is heading for aortic valve intervention, possibly in the next few years. (4) Hypertensive urgency She admitted that she was not monitoring her blood pressure but was taking her prescribed Lisinopril and Metoprolol. We added NTPaste while here and the iv Lasix also helped correct the HTN. At discharge, we advised she continue her previous Lisinopril and increased the Metoprolol (as above). (5) Diabetes mellitus type 2 in obese Her A1c was good at 6.1. Her Metformin was on hold, and she was on a carb- controlled diet and sliding scale Insulin coverage while here. She also needs weight control. (6) Solitary right kidney This is due to renal artery steosis and infarct of one kidney, as per Hx. We followed her creat closely whole she was on iv Lasix, and her creat was stable. At discharge, new po Lasix was prescribed, but to use only as needed for leg edema or orthopnea. (7) PVD (peripheral vascular disease) She had renal artery stenosis. We continued her daily ASA and her Crestor dose. (8) COPD (chronic obstructive pulmonary disease) She was not in COPD exacerbation. The inhaler was ordered to use prn. (9) Morbid obesity with BMI of 45.0-49.9, adult As per Hx; her BMI is 46. Weight loss was advised. - ALLERGIES Allergies/Adverse Reactions: Allergies Allergy/AdvReac Type Severity Reaction Status Date / Time No Known Drug Allergies Allergy Verified 08/19/20 20:31 - MEDICATIONS Home Medications: Ambulatory Orders Medication Instructions Recorded Confirmed Albuterol Sulfate [Proair Hfa 1 puffs IH Q6H PRN 08/19/20 08/20/20 Inhaler] Aspirin [Aspirin EC] 81 mg PO DAILY 08/19/20 08/19/20 Rosuvastatin Calcium [Crestor] 20 mg PO DAILY 08/19/20 08/19/20 Sertraline [Zoloft] 50 mg PO DAILY 08/19/20 08/19/20 metFORMIN [Glucophage] 500 mg PO DAILY 08/19/20 08/19/20 Furosemide [Lasix] 20 mg PO Q48H #15 tab 08/21/20 Lisinopril [Zestril] 20 mg PO DAILY #15 tab 08/21/20 Metoprolol Succinate [Toprol Xl] 100 mg PO DAILY #60 tab.sr 08/21/20 Potassium Chloride [K-Dur] 20 meq PO Q48H #15 tab 08/21/20 - PHYSICAL EXAM AT DISCHARGE General Appearance: positive: No acute distress, Alert, Other (Morbidly obese) Eyes Bilateral: positive: Normal inspection, EOMI ENT: positive: ENT inspection nml, No signs of dehydration Neck: positive: Nml inspection, No JVD Respiratory: positive: No respiratory distress, Breath sounds nml Cardiovascular: positive: Regular rate & rhythm, Systolic murmur Abdomen: positive: Non-tender, Nml bowel sounds, No distention (Obese with a pannus) Skin: positive: Warm, Dry Extremities: positive: Non-tender, Other (Trace ankle edema) Neurologic/Psychiatric: positive: Oriented x3 (Non-focal exam) - LABS Result Diagrams: 08/21/20 04:21 08/21/20 04:21 - DIAGNOSTIC IMAGING Diagnostic Imaging Results: Final report reviewed - FOLLOW UP Follow Up: See [facility] in follow-up soon. See PCP in 1-2 weeks for hospital follow- up. - TIME SPENT Time Spent in Discharge (Minutes): 30
== END 2020-08-21 15:01 | disposition home or self-care (01) | DRG 291 ==
LOC: EDUNIT# → ED 20:22 → MS2 23:22
PROVIDERS: ADMIT Internal Medicine; ATTEND Internal Medicine
DX: I11.0 Hypertensive heart disease with heart failure (principal); I50.31 Acute diastolic (congestive) heart failure; J96.01 Acute respiratory failure with hypoxia; Z68.42 Body mass index [BMI] 45.0-49.9, adult; I35.0 Nonrheumatic aortic (valve) stenosis; I16.0 Hypertensive urgency; E11.51 Type 2 diabetes mellitus with diabetic peripheral angiopathy without gangrene; E66.01 Morbid (severe) obesity due to excess calories; J44.9 Chronic obstructive pulmonary disease, unspecified; Z20.822 Contact with and (suspected) exposure to COVID-19; E78.5 Hyperlipidemia, unspecified; Z90.5 Acquired absence of kidney; Z79.82 Long term (current) use of aspirin; Z79.84 Long term (current) use of oral hypoglycemic drugs; Z79.899 Other long term (current) drug therapy; Z87.891 Personal history of nicotine dependence
CPT/HCPCS: 0202U; 36415; 71045; 80048; 80053; 83036; 83690; 83880; 84484; 85025; 93005; 93306; 96374; 96375; 99284; 99285; A9270; J1650

== ENCOUNTER 2023-04-21 07:24 | Outpatient (CLI) | payer MEDICARE | END 2023-04-21 07:25 | disposition EMS.NT | LOC: EMS 07:24 | DX: M54.50 Low back pain, unspecified (principal); M79.652 Pain in left thigh; R20.0 Anesthesia of skin; R11.0 Nausea ==

== ENCOUNTER 2023-04-21 09:36 | Outpatient (CLI) | payer MEDICARE | END 2023-04-21 09:37 | disposition critical access hospital (66) | LOC: EMS 09:36 | DX: M79.605 Pain in left leg (principal); R20.0 Anesthesia of skin | CPT/HCPCS: A0425; A0429 ==

== ENCOUNTER 2023-04-21 10:18 | Inpatient (IN) | payer BC, MEDICARE ==
[2023-04-21] MEDS ORDERED: ONDANSETRON 4 MG/2 ML VIAL IVP STA ×2 (11:23→16:21)
[2023-04-21] MEDS ORDERED: SODIUM CHLORIDE 0.9% 500 ML IV STA ×3 (11:23→16:22)
[2023-04-21] MEDS ORDERED: MORPHINE 2 MG/ML CARPUJECT IVP STA (11:23)
--- NOTE | 2023-04-21 11:44 | ED Physician Documentation ---
History of Present Illness - Stated complaint Stated Complaint: L LEG PX - Chief complaint Chief Complaint: General - History obtained from History obtained from: Patient - Additonal information Additional information: Patient is a 68-year-old female with a history of multiple prior abdominal surgeries, solitary kidney presenting for evaluation of episodic nausea, vomiting and diarrhea for the past 3 weeks. She states that her most recent episode started yesterday. Patient also reports pain to the lower back and radiating into bilateral legs but worse on the left. She reports more than 10 episodes of diarrhea and emesis. She states that the back and leg pain gets better when she adjusts her position and feels that it is worse due to being on the toilet so much over the last day. Patient reports the pain is primarily to the lateral aspect of the leg. She does have a history of diabetes and congestive heart failure. She does report alcohol use but has not had much over the last 3 weeks of but did have 2 drinks yesterday. She denies having withdrawal symptoms in the past from not having had alcohol. Review of Systems Constitutional: denies: Fever Cardiac: denies: Chest pain / pressure Respiratory: denies: Dyspnea GI: reports: Abdominal Pain, Nausea, Vomiting, Diarrhea. 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, Oophrectomy, Other Cardiovascular: Other HEENT: Tonsil/Adenoidectomy - Present Medications Home Medications: Ambulatory Orders Medication Instructions Recorded Confirmed Albuterol Sulfate [Proair Hfa 1 puffs IH Q6H PRN 08/19/20 08/20/20 Inhaler] Aspirin [Aspirin EC] 81 mg PO DAILY 08/19/20 08/19/20 Rosuvastatin Calcium [Crestor] 20 mg PO DAILY 08/19/20 08/19/20 Sertraline [Zoloft] 50 mg PO DAILY 08/19/20 08/19/20 metFORMIN [Glucophage] 500 mg PO DAILY 08/19/20 08/19/20 Furosemide [Lasix] 20 mg PO Q48H #15 tab 08/21/20 Lisinopril [Zestril] 20 mg PO DAILY #15 tab 08/21/20 Metoprolol Succinate [Toprol Xl] 100 mg PO DAILY #60 tab.sr 08/21/20 Potassium Chloride [K-Dur] 20 meq PO Q48H #15 tab 08/21/20 - Allergies Allergies/Adverse Reactions: Allergies Allergy/AdvReac Type Severity Reaction Status Date / Time No Known Drug Allergies Allergy Verified 04/21/23 10:46 - Social History Does the pt smoke?: No Smoking Status: Never smoker Does the pt drink ETOH?: Yes Does the pt have substance abuse?: No - POLST Patient has POLST: No POLST Status: Full Code PD ED PE NORMAL - General General: Alert and oriented X 3, No acute distress, Well developed/nourished - HEENT HEENT: Atraumatic, Moist mucous membranes, Pharynx benign - Neck Neck: Supple, no meningeal sign - Cardiac Cardiac: Other (Tachycardic, regular rhythm) - Respiratory Respiratory: No respiratory distress, Clear bilaterally - Abdomen Abdomen: Normal bowel sounds, Soft, Non distended, Other (Multiple healed laparotomy incisions) - Extremities Extremities: No deformity, No tenderness to palpate, No edema, No calf tenderness / cord, Other (Cool extremities b/l) - Neuro Neuro: Alert and oriented X 3, No motor deficit, No sensory deficit, Normal speech Results - Vitals Vitals: Vital Signs - 24 hr 04/21/23 04/21/23 04/21/23 10:35 14:00 15:00 Temperature 36.6 C 36.3 C L Heart Rate 121 H 95 79 Respiratory 18 13 12 Rate Blood Pressure 102/49 L 96/64 105/68 O2 Saturation 99 95 95 04/21/23 04/21/23 15:50 17:00 Temperature 36.2 C L Heart Rate 97 78 Respiratory 24 16 Rate Blood Pressure 110/91 H 95/78 O2 Saturation 93 95 Oxygen O2 Source Room air - EKG (time done) 1228 EKG releavant findings:: EKG personally interpreted by author of this note. Relevant findings are: Rate 100, Sinus tachycardia, no STEMI - Labs Labs: Laboratory Tests 04/21/23 04/21/23 04/21/23 13:10 13:10 13:10 WBC 27.2 H RBC 5.05 Hgb 15.8 Hct 48.2 H MCV 95.4 MCH 31.3 H MCHC 32.8 RDW 13.5 Plt Count 283 MPV 9.8 Neut # (Auto) ENCAPSULATOR Lymph # (Auto) ENCAPSULATOR Simpson # (Auto) ENCAPSULATOR Eos # (Auto) ENCAPSULATOR Baso # (Auto) ENCAPSULATOR Absolute Nucleated RBC ENCAPSULATOR Total Counted 100 Band Neuts % (Manual) 14 H Reactive Lymphs % (Man) 5 Abnorm Lymph % (Manual) 0 Myelocytes % 1 H Nucleated RBC % ENCAPSULATOR Neutrophils # (Manual) 24.5 H Lymphocytes # (Manual) 2.2 Monocytes # (Manual) 0.3 Eosinophils # (Manual) 0.0 Basophils # (Manual) 0.0 Differential Comment MANUAL DIFFERENTIAL Platelet Morphology NORMAL APPEARANCE RBC Morph Micro Appear 1+ ANISOCYTOSIS Sodium 142 Potassium 4.2 Chloride 103 Carbon Dioxide 19 L Anion Gap 20.0 H BUN 35 H Creatinine 2.0 H Estimated GFR (MDRD) 25 L Glucose 137 H Lactic Acid Calcium 9.9 Total Bilirubin 0.4 AST 32 ALT 29 Alkaline Phosphatase 39 L C-Reactive Protein 0.8 H Total Protein 7.5 Albumin 4.5 Globulin 3.0 Albumin/Globulin Ratio 1.5 Lipase 84 H 04/21/23 14:18 WBC RBC Hgb Hct MCV MCH MCHC RDW Plt Count MPV Neut # (Auto) Lymph # (Auto) Simpson # (Auto) Eos # (Auto) Baso # (Auto) Absolute Nucleated RBC Total Counted Band Neuts % (Manual) Reactive Lymphs % (Man) Abnorm Lymph % (Manual) Myelocytes % Nucleated RBC % Neutrophils # (Manual) Lymphocytes # (Manual) Monocytes # (Manual) Eosinophils # (Manual) Basophils # (Manual) Differential Comment Platelet Morphology RBC Morph Micro Appear Sodium Potassium Chloride Carbon Dioxide Anion Gap BUN Creatinine Estimated GFR (MDRD) Glucose Lactic Acid 1.8 Calcium Total Bilirubin AST ALT Alkaline Phosphatase C-Reactive Protein Total Protein Albumin Globulin Albumin/Globulin Ratio Lipase PD Medical Decision Making - ED course Complexity details: reviewed results, re-evaluated patient, d/w patient Reviewed Lab Results: BUN 35 / Cr 2.0 / GFR 25. Prior labs from [facility] on 04/04/23 Show BUN of 23, creatinine 0.81, GFR 80 ED course: 1611 - D/W Dr. 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 I reviewed patient's arterial duplex with her and per Dr. Lamb that is similar to prior with monophasic flow to PT. Prior NARGIS is 0.3. Would not offer intervention for this unless patient is developing signs of limb ischemia such as ulcers. Pt with recent episodes of N/V/D and now having low back into L leg pain. Pt has PAD with cool lower extremities. Has known occluded aortic iliac graft. Tachycardic. has history of CHF so given 3 boluses of 500ml with re-eval between each bolus. Reports pain into L leg. Given IV morphine and IV dilaudid with improvement. No leg shortening, XR hip negative for fracture. Allows for ROM without pain. Labs reviewed. Pt has elevated WBC and NICK (recent outpatient labs with normal renal function, pt now only has one kidney). Unclear if there is worsening ischemia causing leg pain. CTA with runoff unable to be performed due to GFR 25. Arterial U/S obtained and reviewed and discussed with her vascular surgeon. Does not appear to have acute findings. Overall abdominal exam is benign. Pt has had multiple prior surgeries so CT without contrast ordered. Findings of enteritis. Pt has hernia but no overlying tenderness and no signs of incarceration/strangulation. Lactic 1.8. HR improved with IV fluids. D/W Hospitalist who will admit for further management. Departure - Departure Disposition: 68 [facility] DC/Xfer Clinical Impression: NICK (acute kidney injury), Leukocytosis, Left leg pain, PAD (peripheral artery disease), Tachycardia Condition: Good Discharge Date/Time: 04/21/23 19:43
--- NOTE | 2023-04-21 12:11 | XRAY Report ---
PROCEDURE: Hip w/Pelvis 2-3V LT INDICATIONS: fall/pain TECHNIQUE: AP pelvis with lateral view(s) of the left hip(s). COMPARISON: None. FINDINGS: Bones: No fractures or dislocations. No suspicious bony lesions. Soft tissues: No suspicious soft tissue calcifications or masses. IMPRESSION: No acute bony abnormality. If there remains a high clinical concern for fracture, including inability to bear weight, consider cross-sectional imaging to exclude an occult fracture. Reviewed by: Mansoor Choi MD on 04/21/2023 12:10 PM PDT Approved by: Mansoor Choi MD on 04/21/2023 12:10 PM PDT Station ID: [id number]
[2023-04-21] MEDS ORDERED: HYDROmorphone 1 MG/ML CARPUJECT IVP STA (13:09)
[2023-04-21 13:22] LABS: BASOPHILS % (AUTO) 0.4 %; EOSINOPHILS % (AUTO) 0.1 %; HCT - HEMATOCRIT 48.2 % (37.0-47.0); HGB - HEMOGLOBIN 15.8 g/dL (12.0-16.0); LYMPHOCYTES % (AUTO) 8.2 %; MEAN CORPUSCULAR HEMOGLOBIN 31.3 pg (27.0-31.0); MEAN CORPUSCULAR HGB CONC 32.8 g/dL (32.0-36.0); MEAN CORPUSCULAR VOLUME 95.4 fL (81.0-99.0); MEAN PLATELET VOLUME 9.8 fL (7.9-10.8); MONOCYTES % (AUTO) 5.2 %; NEUTROPHILS % (AUTO) 81.9 %; PLT - PLATELET COUNT 283 10^3/uL (130-450); RED BLOOD COUNT 5.05 10^6/uL (4.20-5.40); RED CELL DISTRIBUTION WIDTH 13.5 % (12.0-15.0); WHITE BLOOD COUNT 27.2 x10^3/uL (4.8-10.8)
[2023-04-21 13:25] LABS: ABNORMAL LYMPHS % (MANUAL) 0 %
[2023-04-21 13:41] LABS: ALBUMIN 4.5 g/dL (3.2-5.5)
[2023-04-21 13:44] LABS: ALBUMIN/GLOBULIN RATIO 1.5 (1.0-2.2); BILIRUBIN,TOTAL 0.4 mg/dL (0.2-1.0); CALCIUM 9.9 mg/dL (8.5-10.3); POTASSIUM 4.2 mmol/L (3.5-4.5); TOTAL PROTEIN 7.5 g/dL (6.4-8.9)
[2023-04-21 13:47] LABS: BAND NEUTROPHILS % (MANUAL) 14 %; LYMPHOCYTES # (MANUAL) 2.2 10^3/uL (1.5-3.5); LYMPHOCYTES % (MANUAL) 3 %; MONOCYTES # (MANUAL) 0.3 10^3/uL (0.0-1.0); MYELOCYTES % (MANUAL) 1 %; NEUTROPHILS # (MANUAL) 24.5 10^3/uL (1.5-6.6); RBC MORPHOLOGY (MULTIPLE) 1+ ANISOCYTOSIS (NORMAL); REACTIVE LYMPHS % (MANUAL) 5 %
[2023-04-21 13:48] LABS: PLATELET MORPHOLOGY NORMAL APPEARANCE (NORMAL)
[2023-04-21 13:50] LABS: DIFFERENTIAL COMMENT MANUAL DIFFERENTIAL
--- NOTE | 2023-04-21 16:06 | Ultrasound Report ---
PROCEDURE: Duplex Lwr Ext Arterial LT INDICATIONS: pain/PAD TECHNIQUE: Color and pulse Doppler interrogation was performed of the left lower extremity arterial system, with image documentation. COMPARISON: None FINDINGS: Common femoral artery: 44 cm/sec, with monophasic flow. Deep femoral artery: 27 cm/sec, with monophasic flow. Proximal superficial femoral artery: 27 cm/sec, with monophasic flow. Mid superficial femoral artery: 26 cm/sec, with monophasic flow. Distal superficial femoral artery: 13 cm/sec, with monophasic flow. Popliteal artery: 10 cm/sec, with monophasic flow. Posterior tibial artery: 11 cm/sec, with monophasic flow. Anterior tibial artery/dorsalis pedis not visualized. Huffman-scale imaging description: Atherosclerotic plaque present. IMPRESSION: Monophasic waveforms throughout the left lower extremity. Low velocities also present. Findings sugge stive of iliac disease. Anterior tibial artery/dorsalis pedis artery not visualized. Reviewed by: Paul Marmolejo on 04/21/2023 4:05 PM PDT Approved by: Paul Marmolejo on 04/21/2023 4:05 PM PDT Station ID: [id number]
--- NOTE | 2023-04-21 16:27 | CT Report ---
PROCEDURE: ABDOMEN/PELVIS WO INDICATIONS: vomiting/diarrhea/GFR 25 TECHNIQUE: A CT scan of the abdomen and pelvis was performed without the use of intravenous contrast. Images we re recorded and evaluated at appropriate window settings. Reformats: coronal and sagittal. For radiat ion dose reduction, the following was used: automated exposure control, adjustment of mA and/or kV ac cording to patient size. COMPARISON: None. FINDINGS: Image quality: Excellent. Lung bases and heart: Aortic and mitral valve calcifications. Liver: Hepatic steatosis. Gallbladder and biliary tree: Gallbladder sludge versus small stones. No wall thickening. No biliary dilation. Spleen: No splenomegaly. Pancreas: No pancreatic ductal dilation. Adrenals: No adrenal nodule. Kidneys and ureters: Left nephrectomy. No right-sided hydronephrosis. No renal cystic lesion which re quires follow up. No solid mass. Bowel and peritoneum: No bowel distension. Diverticulosis without evidence of diverticulitis. Mesente jesus fat stranding associated with nondistended small bowel in the left lower quadrant. Prior partial colectomy, surgical anastomosis in the deep pelvis. Lymph nodes: No central or retroperitoneal adenopathy. Vessels: No infrarenal aortic aneurysm. PELVIS Reproductive organs: Unremarkable. Bladder: No wall thickness, accounting for underdistention. Pelvic lymph nodes: No pelvic adenopathy by size criteria. Bones: No aggressive osseous abnormality. Other: [place], supraumbilical hernia containing a short segment of nonobstructed transverse colon. Periumbilical (right lateral) ventral hernia containing trace fluid in the inflamed fat; the sac chiquis sures 8.4 x 3.8 cm and the neck measures 2.7 cm. Small, Fat-containing right canal of Nuck hernia. IMPRESSION: Mesenteric fat stranding associated with nondistended small bowel knee left lower quadrant, concernin g for enteritis. Periumbilical hernia containing inflamed fat and trace fluid. Additional supraumbilical hernia contai milo nonobstructed transverse colon. Reviewed by: Paul Marmolejo on 04/21/2023 4:26 PM PDT Approved by: Paul Marmolejo on 04/21/2023 4:26 PM PDT Station ID: [id number]
--- NOTE | 2023-04-21 16:40 | XRAY Report ---
PROCEDURE: Chest 1 View X-Ray INDICATIONS: weakness/leukocytosis TECHNIQUE: One view of the chest was acquired. COMPARISON: 08/19/2020. FINDINGS: Surgical changes and devices: None. Lungs and pleura: No pleural effusions or pneumothorax. Lungs are clear. Mediastinum: Mediastinal contours appear normal. Heart size is normal. Bones and chest wall: No suspicious bony lesions. Overlying soft tissues appear unremarkable. IMPRESSION: No acute cardiopulmonary process. Reviewed by: Bret Muniz MD on 04/21/2023 4:39 PM PDT Approved by: Bret Muniz MD on 04/21/2023 4:39 PM PDT Station ID: [id number]
[2023-04-21] MEDS ORDERED: ONDANSETRON ODT 4 MG TABLET TL PRN (17:05)
[2023-04-21] MEDS ORDERED: SODIUM CHLORIDE FLUSH 0.9% 10 ML SYRINGE IVP PRN (17:05)
[2023-04-21] MEDS ORDERED: PROCHLORPERAZINE 10 MG/2 ML VIAL IVP PRN (17:05)
[2023-04-21] MEDS ORDERED: ATORVASTATIN 40 MG TABLET PO STA (17:11)
--- NOTE | 2023-04-21 17:23 | HISTORY & PHYSICAL EXAMINATION ---
Chief Complaint - Chief Complaint Chief Complaint: nausea, vomitting and diarrhea History of Present Illness - Admitted From Admitted From:: home - History Obtained From Records Reviewed: yes History obtained from: patient and ED sign out - History of Present Illness HPI Comment/Other: A 68 years old female, class III obesity with BMI 43, history of hypertension, diabetes, hyperlipidemia, CHF, solitary kidney, multiple prior abdominal surgeries presented to the ED for episodes of nausea vomiting and diarrhea for the past 3 weeks. Worsened in the past 2 days. Poor oral intake along with lower back pain radiated to bilateral legs worsening to the left. Patient reports when she had diarrhea it was over 10 times a day, along with vomiting. No blood in stool, no mucus noted. Mostly watery. Patient reports she was taken 1 week of antibiotics 1 month ago for UTI. Denies any risk of food poisoning, she reports she feels very weak. She denies any fever or chills, does have abdominal pain but it was dull ache. She does report alcohol use but has not had 8 over 3 weeks although she had 2 cocktails drinks yesterday In the ED patient is hypotensive with blood pressure 90/60. Tachycardia with heart rate of 120. Afebrile, saturated well on room air. Labs show WBC 27, bands 40%. Creatinine 2.0 comparing to normal 2 weeks ago. Lactic acid 1.8. Anion gap 20. With cold extremities ED provider performed arterial vascular study showed arterial graft occlusion. Vascular surgeon were consulted, states those are chronic condition, no intervention is indicated at this point. CT abdomen shows hernia no sign of incarceration. It does have sign of enterocolitis. Blood culture were obtained in the ED. Patient was given small bolus in the ED. 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 He from dementia. Her mother from Alzheimer's. Social History Notes: She smoked 1 pack/day for 30 years. She quit smoking 9 years ago. She drinks 3-4 drinks most evenings. These are usually vodka mixed drinks. She denies any recreational substance use. - POLST Patient has POLST: No POLST Status: Full Code Meds/Allgy - Home Medications Home Medications: Ambulatory Orders Medication Instructions Recorded Confirmed Albuterol Sulfate [Proair Hfa 1 puffs IH Q6H PRN 08/19/20 08/20/20 Inhaler] Aspirin [Aspirin EC] 81 mg PO DAILY 08/19/20 08/19/20 Rosuvastatin Calcium [Crestor] 20 mg PO DAILY 08/19/20 08/19/20 Sertraline [Zoloft] 50 mg PO DAILY 08/19/20 08/19/20 metFORMIN [Glucophage] 500 mg PO DAILY 08/19/20 08/19/20 Furosemide [Lasix] 20 mg PO Q48H #15 tab 08/21/20 Lisinopril [Zestril] 20 mg PO DAILY #15 tab 08/21/20 Metoprolol Succinate [Toprol Xl] 100 mg PO DAILY #60 tab.sr 08/21/20 Potassium Chloride [K-Dur] 20 meq PO Q48H #15 tab 08/21/20 - Allergies Allergies/Adverse Reactions: Allergies Allergy/AdvReac Type Severity Reaction Status Date / Time No Known Drug Allergies Allergy Verified 04/21/23 10:46 Review of Systems - Constitutional Constitutional: reports: Fatigue, Weakness, Poor appetite. denies: Fever - Eyes Eyes: denies: Blurred vision, Vision loss, Dipolpia - Ears, Nose & Throat Ears, Nose & Throat: denies: Nasal pain, Nasal discharge, Sore throat - Cardiovascular Cariovascular: denies: Irregular heart rate, Palpitations, Chest pain - Respiratory Respiratory: denies: Cough, Sputum production, Wheezing - Gastrointestinal Gastrointestinal: reports: Abdominal pain, Diarrhea, Nausea, Vomiting, Poor appetite. denies: Black stools, Bloody stools - Genitourinary Genitourinary: reports: Dysuria, Frequency, Urgency - Musculoskeletal Musculoskeletal: reports: Joint pain, Other (leg pain, chornic worsening) - Neurological Neurological: reports: General weakness - Psychiatric Psychiatric: reports: Depression Prior Level of Functionality: Independent in ADLs Exam - Vital Signs Reviewed Vital Signs: Yes Vital Signs: Vital Signs x48h Temp Pulse Resp BP Pulse Ox 04/21/23 15:50 97 24 110/91 H 93 04/21/23 15:00 36.3 C L 79 12 105/68 95 04/21/23 14:00 95 13 96/64 95 04/21/23 10:35 36.6 C 121 H 18 102/49 L 99 - Physical Exam General Appearance: positive: Mild distress, Anxious Eyes Bilateral: positive: PERRL, EOMI ENT: positive: ENT inspection nml Neck: positive: Nml inspection, Thyroid nml, No JVD Respiratory: positive: Chest non-tender, No respiratory distress. negative: Wheezes, Rales, Rhonchi Cardiovascular: positive: Regular rate & rhythm Abdomen: positive: Tenderness, Other (Postop appearance, midline scars, skin are not completely healed Mild tenderness on palpation) Skin: positive: Cyanosis, Other (Cold lower extremities cyanotic appearance) Extremities: positive: Other (Pale lower extremities) Neurologic/Psychiatric: positive: Oriented x3, CN's nml (2-12) Sepsis Event Note (H) - Evaluation Current Stage of Sepsis: Severe sepsis Confirmed Source and Organism (if known) of Sepsis: Enteritis Sepsis Associated Organ Dysfunction: NICK Conclusion/Plan - Problem List (1) Sepsis associated hypotension Conclusion/Plan: Tachycardia with heart rate 120, WBC 27 meet criteria for SIRS. Severe metabol ic acidosis with anion gap of 20 Likely source of infection is enteritis Complicated with hypotension, acute renal failure In the setting of CHF, diabetes, severe PAD patient Give IV fluid, but cautiously due to history of CHF, Blood culture obtained in the ED Give Cipro and Flagyl (2) NICK (acute kidney injury) Conclusion/Plan: In the setting of solitary kidney, creatinine 2 at admission comparing to baseline normal creatinine level. Give IV fluid, but cautiously Monitoring renal function (3) Metabolic acidosis Conclusion/Plan: anion gap 20 Due to NICK, infection Give IV fluid, treat infection monitoring BMP (4) PVD (peripheral vascular disease) Conclusion/Plan: Severe Arterial Doppler shows occluded graft Cold lower extremities, high risk for acute ischemic limb damage Continue with aspirin, statin Monitoring lower extremity pulses Vascular surgical follow-up as outpatient (5) Diabetes mellitus type 2 in obese Conclusion/Plan: Last A1c 6.0 less than 1 month ago per patient She is on diabetes diet, on Victoza only Give low-dose insulin sliding scale - Lab Results Fish Bones: 04/21/23 13:10 04/21/23 13:10 - Diagnostic Imaging Results Diagnostic Imaging Results: positive: Final report reviewed - EKG Results EKG Interpreted Independently: Yes
[2023-04-21] MEDS: oxyCODONE 5 MG TABLET PO PRN ×2 (17:37→22:12)
[2023-04-21] MEDS: ACETAMINOPHEN 325 MG TABLET PO PRN ×2 (17:37→22:11)
[2023-04-21] MEDS ORDERED: metroNIDAZOLE 500 MG/100 ML 500 MG/100 ML BAG IV SCH (18:00)
[2023-04-21] MEDS: CIPROFLOXACIN 400 MG/200 ML 400 MG/200 ML BAG IV SCH (18:35)
[2023-04-21 20:19] LABS: BASOPHILS # (AUTO) 0.1 10^3/uL (0.0-0.1); BASOPHILS % (AUTO) 0.3 %; EOSINOPHILS % (AUTO) 0.1 %; HCT - HEMATOCRIT 40.5 % (37.0-47.0); HGB - HEMOGLOBIN 13.2 g/dL (12.0-16.0); LYMPHOCYTES # (AUTO) 1.7 10^3/uL (1.5-3.5); LYMPHOCYTES % (AUTO) 9.2 %; MEAN CORPUSCULAR HEMOGLOBIN 31.7 pg (27.0-31.0); MEAN CORPUSCULAR HGB CONC 32.6 g/dL (32.0-36.0); MEAN CORPUSCULAR VOLUME 97.1 fL (81.0-99.0); MEAN PLATELET VOLUME 9.7 fL (7.9-10.8); MONOCYTES % (AUTO) 5.3 %; NEUTROPHILS # (AUTO) 15.8 10^3/uL (1.5-6.6); NEUTROPHILS % (AUTO) 83.5 %; PLT - PLATELET COUNT 188 10^3/uL (130-450); RED BLOOD COUNT 4.17 10^6/uL (4.20-5.40); RED CELL DISTRIBUTION WIDTH 13.6 % (12.0-15.0); WHITE BLOOD COUNT 18.9 x10^3/uL (4.8-10.8)
[2023-04-21 20:35] LABS: CRP - C-REACTIVE PROTEIN 3.6 mg/dL (<0.5)
[2023-04-21] MEDS: HYDROmorphone 0.5 MG/0.5 ML SYRINGE IVP PRN (20:47)
[2023-04-21 20:56] LABS: CALCIUM 8.8 mg/dL (8.5-10.3); POTASSIUM 4.7 mmol/L (3.5-4.5)
[2023-04-21] MEDS ORDERED: HEPARIN 5,000 UNIT/ML VIAL SUBQ SCH (21:00)
[2023-04-21] MEDS ORDERED: SODIUM CHLORIDE 0.9% 1,000 ML IV SCH (22:00)
[2023-04-21] MEDS: INSULIN LISPRO 300 UNIT/3 ML PEN SUBQ SCH (22:00)
[2023-04-22] MEDS: HYDROmorphone 0.5 MG/0.5 ML SYRINGE IVP PRN (00:15)
[2023-04-22] MEDS: SODIUM CHLORIDE FLUSH 0.9% 10 ML SYRINGE IVP SCH ×3 (00:15→18:18)
[2023-04-22] MEDS: oxyCODONE 5 MG TABLET PO PRN ×4 (02:24→16:21)
[2023-04-22] MEDS: ACETAMINOPHEN 325 MG TABLET PO PRN ×2 (02:24→06:13)
[2023-04-22] MEDS: metroNIDAZOLE 500 MG/100 ML 500 MG/100 ML BAG IV SCH ×3 (05:14→21:01)
[2023-04-22 05:54] LABS: BASOPHILS % (AUTO) 0.2 %; EOSINOPHILS # (AUTO) 0.1 10^3/uL (0.0-0.7); EOSINOPHILS % (AUTO) 0.4 %; HCT - HEMATOCRIT 36.3 % (37.0-47.0); LYMPHOCYTES # (AUTO) 2.1 10^3/uL (1.5-3.5); LYMPHOCYTES % (AUTO) 14.9 %; MEAN CORPUSCULAR HEMOGLOBIN 31.8 pg (27.0-31.0); MEAN CORPUSCULAR HGB CONC 33.1 g/dL (32.0-36.0); MEAN CORPUSCULAR VOLUME 96.3 fL (81.0-99.0); MEAN PLATELET VOLUME 9.9 fL (7.9-10.8); MONOCYTES % (AUTO) 7.3 %; NEUTROPHILS # (AUTO) 10.9 10^3/uL (1.5-6.6); NEUTROPHILS % (AUTO) 76.5 %; PLT - PLATELET COUNT 183 10^3/uL (130-450); RED BLOOD COUNT 3.77 10^6/uL (4.20-5.40); RED CELL DISTRIBUTION WIDTH 13.8 % (12.0-15.0); WHITE BLOOD COUNT 14.2 x10^3/uL (4.8-10.8)
[2023-04-22 06:13] LABS: CALCIUM 8.6 mg/dL (8.5-10.3); CRP - C-REACTIVE PROTEIN 6.2 mg/dL (<0.5); POTASSIUM 3.7 mmol/L (3.5-4.5)
[2023-04-22] MEDS: CIPROFLOXACIN 400 MG/200 ML 400 MG/200 ML BAG IV SCH ×2 (06:27→18:17)
--- NOTE | 2023-04-22 07:50 | PROVIDER PROGRESS NOTE ---
Assessment/Plan - Problem List (1) Sepsis associated hypotension Assessment/Plan: Improving, hypotension resolved Sepsis secondary to enteritis Patient had a bloody diarrhea, with increased CRP to 6.2, concerns about IBD. Stool specimen has not been able to collected. Patient reports she had colonoscopy over a year ago, only found polyps. I discussed with patient GI provider over [place] Dr. Ricky Morales. Dr. Morales concerns patient may have ischemic bowel, instead of having infectious cause or IBD. Due to lack of imaging support, that is very valid consideration. Per Dr. Morales, this patient has intermittent abdominal pain that is similar to this episode. In between the episode, patient was fairly asymptomatic. Which does not support IBD diagnosis. Dr. Morales recommend continue with supportive care, follow-up with him as outpatient. He does not recommend GI scope Patient overall feels much improved, metabolic acidosis resolved Continue on IV Cipro and Flagyl (2) NICK (acute kidney injury) Assessment/Plan: Creatinine is persistent at 2.0. Per patient she had 1 kidney removed 10 years ago for unknown etiology, she states that kidney test simply and had to be removed no final diagnosis afterwards With her history of CHF, no plan to give further IV fluid today May give another liter of fluid tomorrow (3) Metabolic acidosis Assessment/Plan: Resolved, bicarb normalized, anion gap closed (4) PVD (peripheral vascular disease) Assessment/Plan: Severe PVD, patient follows with vascular surgical team as outpatient (5) Diabetes mellitus type 2 in obese Assessment/Plan: Controlled, A1c was 6 per patient - Current Meds Current Meds: Current Medications Generic Name Dose Route Start Last Admin Trade Name Freq PRN Reason Stop Dose Admin Acetaminophen 650 mg 04/21/23 17:05 04/22/23 06:13 Acetaminophen 325 Mg Tablet PO 650 mg Q4HR PRN Administration Pain 1 to 4, or Fever Hydromorphone HCl 0.5 mg 04/21/23 17:05 04/22/23 00:15 Hydromorphone 0.5 Mg/0.5 Ml Syringe IVP 0.5 mg Q2H PRN Administration Pain 8 to 10 Ciprofloxacin 400 mg in 200 mls @ 200 mls/hr 04/21/23 18:00 04/22/23 06:27 Cipro 400 Mg/200 Ml IV 200 mls/hr Q12H LUCRETIA Administration Sodium Chloride 1,000 mls @ 83.333 mls/hr 04/21/23 22:00 04/21/23 22:12 Normal Saline 0.9% IV 83.333 mls/hr .Q12H LUCRETIA Administration Metronidazole 500 mg in 100 mls @ 100 mls/hr 04/22/23 05:00 04/22/23 06:14 Flagyl 500 Mg/100 Ml IV Infused Q8H [facility] Infusion Insulin Human Lispro 1 - 5 unit 04/21/23 21:00 04/21/23 22:00 Insulin Lispro 300 Unit/3 Ml Pen SUBQ Not Given 0800,1200,1700,2100 [facility] Protocol Oxycodone HCl 5 mg 04/21/23 17:05 04/22/23 06:14 Oxycodone 5 Mg Tablet PO 5 mg Q4HR PRN Administration Pain 5 to 7 Sodium Chloride 10 ml 04/22/23 01:00 04/22/23 00:15 Sodium Chloride Flush 0.9% 10 Ml Syringe IVP 10 ml 0100,0900,1700 [facility] Administration - Lab Result Fish Bone Diagrams: 04/22/23 05:08 04/22/23 05:08 - Additional Planning My Orders: My Active Orders 04/21/23 Dinner Carb-controlled Diet [DIET] 04/21/23 17:05 Activity Orders [RC] Q2HR IO [RC] IOSHIFT Incentive Spirometry - RT [RC] TID Initiate Bowel Care Protocol [RC] .protocol Initiate Line Care Protocol [RC] QSHIFT Initiate Personal Care Protoco [RC] .protocol Oxygen Therapy [RC] .PRN Telemetry- [RC] Q4HR Vital Signs [RC] 0800,1600,0000 Acetaminophen [Tylenol] 650 mg PO Q4HR PRN HYDROmorphone 0.5MG SYRINGE [Dilaudid 0.5MG Syringe] 0.5 mg IVP Q2H PRN Ondansetron Odt [Zofran Odt] 4 mg TL Q6HR PRN Prochlorperazine Inj [Compazine Inj] 10 mg IVP Q6HR PRN Sodium Chloride Flush 0.9% [Normal Saline Flush 0.9%] 10 ml IVP PRN PRN oxyCODONE [Roxicodone] 5 mg PO Q4HR PRN Code Status [OTHERS] Routine Condition of Patient [OTHERS] Routine DVT Prophylaxis [OTHERS] Routine 04/21/23 17:14 Echo Complete w/Bubble Study [ECHO] Stat 04/21/23 17:16 Blood Glucose Checks - Eating [RC] 0800,1200,1700,2100 Initiate Hypoglycemia Protocol [RC] .protocol Nutrition Consult [CONS] Routine 04/21/23 18:00 Ciprofloxacin 400 mg/200 ml [Cipro 400 mg/200 ml] 400 mg in 200 ml IV Q12H 04/21/23 18:57 Bladder Scan [RC] ONCE Davis Insertion [RC] QSHIFT 04/21/23 18:58 Davis Continuation and Care [RC] QSHIFT 04/21/23 20:10 CPAP [BiPAP/CPAP] [RC] Q2HR 04/21/23 21:00 Insulin Lispro [Humalog Kwikpen U-100] 1 - 5 unit SUBQ 0800,1200,1700,2100 04/21/23 22:00 Sodium Chloride 0.9% [Normal Saline 0.9%] 1,000 ml IV 83.333 mls/hr 04/22/23 CALPROTECTIN FECAL [REFLAB] Routine 04/22/23 01:00 Sodium Chloride Flush 0.9% [Normal Saline Flush 0.9%] 10 ml IVP 0100,0900,1700 04/22/23 05:00 metroNIDAZOLE 500 MG/100 ML [Flagyl 500 mg/100 ml] 500 mg in 100 ml IV Q8H 04/22/23 09:00 Cholecalciferol [Vitamin D3] 800 unit PO DAILY Sertraline [Zoloft] 50 mg PO DAILY 04/22/23 18:00 Multivitamin [Theragran] 1 tab PO DAILY 04/23/23 05:00 BMP - BASIC METABOLIC PANEL [CHEM] DAILYLAB CBC [CBC - COMP BLD CT W/AUTO DIFF] [HEME] DAILYLAB CRP - C-REACTIVE PROTEIN [CHEM] DAILYLAB 04/23/23 09:00 BNP - B-NATRIURETIC PEPTIDE [CHEM] DAILY 04/24/23 05:00 BMP - BASIC METABOLIC PANEL [CHEM] DAILYLAB CBC [CBC - COMP BLD CT W/AUTO DIFF] [HEME] DAILYLAB 04/25/23 05:00 BMP - BASIC METABOLIC PANEL [CHEM] DAILYLAB CBC [CBC - COMP BLD CT W/AUTO DIFF] [HEME] DAILYLAB 04/26/23 05:00 BMP - BASIC METABOLIC PANEL [CHEM] DAILYLAB CBC [CBC - COMP BLD CT W/AUTO DIFF] [HEME] DAILYLAB Subjective - Subjective Patient Reports: Feeling Better (Complains of left leg pain, which was chronic, with acute features,) Objective Vital Signs: Vital Signs - 24 hr 04/21/23 04/21/23 04/21/23 10:35 14:00 15:00 Temperature 36.6 C 36.3 C L Heart Rate 121 H 95 79 Heart Rate [ Brachial] Heart Rate [ Radial] Respiratory 18 13 12 Rate Blood Pressure 102/49 L 96/64 105/68 Blood Pressure [Right Radial artery] O2 Saturation 99 95 95 04/21/23 04/21/23 04/22/23 15:50 17:00 00:00 Temperature 36.2 C L 37.0 C Heart Rate 97 78 Heart Rate [ 82 Brachial] Heart Rate [ Radial] Respiratory 24 16 18 Rate Blood Pressure 110/91 H 95/78 Blood Pressure [Right Radial artery] O2 Saturation 93 95 93 04/22/23 07:30 Temperature 36.5 C Heart Rate Heart Rate [ Brachial] Heart Rate [ 83 Radial] Respiratory 18 Rate Blood Pressure Blood Pressure 97/43 L [Right Radial artery] O2 Saturation 96 Oxygen O2 Source Room air I&O (Last 24 Hrs): Intake and Output Totals x24h 04/20/23 04/21/23 04/22/23 23:59 23:59 23:59 Intake Total 2250 600 Output Total 150 470 Balance 2100 130 General: Alert, Oriented x3 Neck: Supple, No JVD Neuro: Alert, Non Focal Cardiovascular: Regular rate Respiratory: Chest non-tender, No respiratory distress Abdomen: Other (Soft, mildly tender) Extremities: Other (Cold lower extremities) - Results Results: Laboratory Results WBC 14.2 x10^3/uL (4.8-10.8) H 04/22/23 05:08 RBC 3.77 10^6/uL (4.20-5.40) L 04/22/23 05:08 Hgb 12.0 g/dL (12.0-16.0) 04/22/23 05:08 Hct 36.3 % (37.0-47.0) L 04/22/23 05:08 MCV 96.3 fL (81.0-99.0) 04/22/23 05:08 MCH 31.8 pg (27.0-31.0) H 04/22/23 05:08 MCHC 33.1 g/dL (32.0-36.0) 04/22/23 05:08 RDW 13.8 % (12.0-15.0) 04/22/23 05:08 Plt Count 183 10^3/uL (130-450) 04/22/23 05:08 MPV 9.9 fL (7.9-10.8) 04/22/23 05:08 Neut # (Auto) 10.9 10^3/uL (1.5-6.6) H 04/22/23 05:08 Lymph # (Auto) 2.1 10^3/uL (1.5-3.5) 04/22/23 05:08 [place] # (Auto) 1.0 10^3/uL (0.0-1.0) 04/22/23 05:08 Eos # (Auto) 0.1 10^3/uL (0.0-0.7) 04/22/23 05:08 Baso # (Auto) 0.0 10^3/uL (0.0-0.1) 04/22/23 05:08 Absolute Nucleated RBC 0.00 x10^3/uL 04/22/23 05:08 Total Counted 100 04/21/23 13:10 Band Neuts % (Manual) 14 % (0-10) H 04/21/23 13:10 Reactive Lymphs % (Man) 5 % 04/21/23 13:10 Abnorm Lymph % (Manual) 0 % 04/21/23 13:10 Myelocytes % 1 % (-0) H 04/21/23 13:10 Nucleated RBC % 0.0 /100WBC 04/22/23 05:08 Neutrophils # (Manual) 24.5 10^3/uL (1.5-6.6) H 04/21/23 13:10 Lymphocytes # (Manual) 2.2 10^3/uL (1.5-3.5) 04/21/23 13:10 Monocytes # (Manual) 0.3 10^3/uL (0.0-1.0) 04/21/23 13:10 Eosinophils # (Manual) 0.0 10^3/uL (0-0.7) 04/21/23 13:10 Basophils # (Manual) 0.0 10^3/uL (0-0.1) 04/21/23 13:10 Differential Comment MANUAL DIFFERENTIAL 04/21/23 13:10 Platelet Morphology NORMAL APPEARANCE (NORMAL) 04/21/23 13:10 RBC Morph Micro Appear 1+ ANISOCYTOSIS (NORMAL) 04/21/23 13:10 Sodium 138 mmol/L (135-145) 04/22/23 05:08 Potassium 3.7 mmol/L (3.5-4.5) 04/22/23 05:08 Chloride 104 mmol/L (101-111) 04/22/23 05:08 Carbon Dioxide 22 mmol/L (21-32) 04/22/23 05:08 Anion Gap 12.0 (6-13) 04/22/23 05:08 BUN 38 mg/dL (6-20) H 04/22/23 05:08 Creatinine 2.0 mg/dL (0.6-1.3) H 04/22/23 05:08 Estimated GFR (MDRD) 25 (>89) L 04/22/23 05:08 Glucose 99 mg/dL (74-104) 04/22/23 05:08 POC Whole Bld Glucose 122 mg/dL (70 - 100) H 04/22/23 07:31 Lactic Acid 1.8 mmol/L (0.5-2.2) 04/21/23 14:18 Calcium 8.6 mg/dL (8.5-10.3) 04/22/23 05:08 Total Bilirubin 0.4 mg/dL (0.2-1.0) 04/21/23 13:10 AST 32 IU/L (10-42) 04/21/23 13:10 ALT 29 IU/L (10-60) 04/21/23 13:10 Alkaline Phosphatase 39 IU/L (42-121) L 04/21/23 13:10 C-Reactive Protein 6.2 mg/dL (<0.5) H 04/22/23 05:08 B-Natriuretic Peptide 31 pg/mL (5-100) 04/22/23 05:08 Total Protein 7.5 g/dL (6.4-8.9) 04/21/23 13:10 Albumin 4.5 g/dL (3.2-5.5) 04/21/23 13:10 Globulin 3.0 g/dL (2.1-4.2) 04/21/23 13:10 Albumin/Globulin Ratio 1.5 (1.0-2.2) 04/21/23 13:10 Lipase 33 U/L (11-82) 04/22/23 05:08 Sepsis Event Note (H) - Evaluation Current Stage of Sepsis: Severe sepsis ABX Reporting Has patient been on IV antibiotics over the past 48 hours?: Yes Current Medications - Current Medications Current Medications: Active Medications Acetaminophen (Acetaminophen 325 Mg Tablet) 650 mg PO Q4HR PRN PRN Reason: Pain 1 to 4, or Fever Last Admin: 04/22/23 06:13 Dose: 650 mg Cholecalciferol (Cholecalciferol 400 Unit Tablet) 800 unit PO DAILY [facility] Last Admin: 04/22/23 08:59 Dose: 800 unit Fluticasone Propionate (Fluticasone Nasal [place]) 1 sprays ROSE DAILY [facility] Last Admin: 04/22/23 10:25 Dose: 1 spr Gabapentin (Gabapentin 100 Mg Capsule) 100 mg PO TID [facility] Last Admin: 04/22/23 13:00 Dose: 100 mg Hydromorphone HCl (Hydromorphone 0.5 Mg/0.5 Ml Syringe) 0.5 mg IVP Q2H PRN PRN Reason: Pain 8 to 10 Last Admin: 04/22/23 00:15 Dose: 0.5 mg Ciprofloxacin (Cipro 400 Mg/200 Ml) 400 mg in 200 mls @ 200 mls/hr IV Q12H [facility] Last Infusion: 04/22/23 07:30 Dose: Infused Metronidazole (Flagyl 500 Mg/100 Ml) 500 mg in 100 mls @ 100 mls/hr IV Q8H [facility] Last Infusion: 04/22/23 13:42 Dose: Infused Insulin Human Lispro (Insulin Lispro 300 Unit/3 Ml Pen) 1 - 5 unit SUBQ 0800,1200,1700,2100 [facility]; Protocol Last Admin: 04/22/23 11:15 Dose: Not Given Multi-Ingredient Ointment (Zinc Oxide 20% Oint 30 Gm Tube) 1 applic TOP PRN PRN PRN Reason: Skin Care Last Admin: 04/22/23 14:31 Dose: 1 applic Multivitamins (Multivitamin Tablet) 1 tab PO DAILY [facility] Ondansetron HCl (Ondansetron Odt 4 Mg Tablet) 4 mg TL Q6HR PRN PRN Reason: Nausea / Vomiting Oxycodone HCl (Oxycodone 5 Mg Tablet) 5 mg PO Q4HR PRN PRN Reason: Pain 5 to 7 Last Admin: 04/22/23 10:31 Dose: 5 mg Prochlorperazine Edisylate (Prochlorperazine 10 Mg/2 Ml Vial) 10 mg IVP Q6HR PRN PRN Reason: Nausea / Vomiting Sertraline HCl (Sertraline 50 Mg Tablet) 50 mg PO DAILY [facility] Last Admin: 04/22/23 08:59 Dose: 50 mg Sodium Chloride (Sodium Chloride Flush 0.9% 10 Ml Syringe) 10 ml IVP PRN PRN PRN Reason: NEEDED PER PROVIDER ORDERS Sodium Chloride (Sodium Chloride Flush 0.9% 10 Ml Syringe) 10 ml IVP 0100,0900,1700 [facility] Last Admin: 04/22/23 09:00 Dose: 10 ml Aspirin [Aspirin EC] 81 mg PO DAILY 08/19/20 Rosuvastatin Calcium [Crestor] 20 mg PO DAILY 08/19/20 Sertraline [Zoloft] 50 mg PO DAILY 08/19/20 Amlodipine Besylate [Norvasc] 10 mg PO DAILY 04/22/23 Furosemide [Lasix] 20 mg PO DAILY 04/22/23 Liraglutide [Victoza 2-Gerardo] 1.2 mg SUBQ DAILY 04/22/23 Lisinopril [Zestril] 40 mg PO DAILY 04/22/23
[2023-04-22] MEDS: SERTRALINE 50 MG TABLET PO SCH (08:59)
[2023-04-22] MEDS: INSULIN LISPRO 300 UNIT/3 ML PEN SUBQ SCH ×4 (08:59→21:00)
[2023-04-22] MEDS: CHOLECALCIFEROL 400 UNIT TABLET PO SCH (08:59)
[2023-04-22] MEDS ORDERED: ASPIRIN EC 81 MG TABLET PO SCH (09:00)
[2023-04-22 09:24] LABS: BILIRUBIN,URINE NEGATIVE (NEGATIVE); GLUCOSE, URINE (UA) NEGATIVE (NEGATIVE); KETONES,URINE (UA) NEGATIVE (NEGATIVE); LEUKOCYTE ESTERASE, URINE MODERATE (NEGATIVE); NITRITE,URINE NEGATIVE (NEGATIVE); OCCULT BLOOD,URINE LARGE (NEGATIVE); PH,URINE 5.5 PH (5.0-7.5); PROTEIN,URINE TRACE mg/dL (NEGATIVE); UROBILINOGEN,URINE 0.2 (NORMAL) E.U./dL (NORMAL)
[2023-04-22 09:25] LABS: CLARITY,URINE SL. CLOUDY (CLEAR)
[2023-04-22 09:37] LABS: BACTERIA,URINE Moderate /HPF (None Seen); SQUAMOUS EPITHELIAL CELL,UR FEW Squamous (<= Few); WBC,URINE >25 /HPF (0-5)
[2023-04-22] MEDS: FLUTICASONE NASAL SPRAY NAS SCH (10:25)
[2023-04-22] MEDS: GABAPENTIN 100 MG CAPSULE PO SCH ×2 (13:00→21:01)
[2023-04-22] MEDS ORDERED: ZINC OXIDE 20% OINT 30 GM TUBE TOP PRN (13:44)
[2023-04-22] MEDS: MULTIVITAMIN TABLET PO SCH (18:18)
[2023-04-22] MEDS ORDERED: COD LIVER OIL/ZINC OXIDE 113 GM TUBE TOP PRN (22:32)
[2023-04-23] MEDS: SODIUM CHLORIDE FLUSH 0.9% 10 ML SYRINGE IVP SCH ×4 (01:01→23:46)
[2023-04-23] MEDS: metroNIDAZOLE 500 MG/100 ML 500 MG/100 ML BAG IV SCH ×3 (05:15→21:11)
[2023-04-23] MEDS: GABAPENTIN 100 MG CAPSULE PO SCH ×3 (05:15→21:11)
[2023-04-23 06:12] LABS: BASOPHILS % (AUTO) 0.5 %; EOSINOPHILS # (AUTO) 0.1 10^3/uL (0.0-0.7); EOSINOPHILS % (AUTO) 1.3 %; HCT - HEMATOCRIT 29.6 % (37.0-47.0); LYMPHOCYTES # (AUTO) 1.6 10^3/uL (1.5-3.5); LYMPHOCYTES % (AUTO) 17.9 %; MEAN CORPUSCULAR HEMOGLOBIN 32.3 pg (27.0-31.0); MEAN CORPUSCULAR HGB CONC 33.8 g/dL (32.0-36.0); MEAN CORPUSCULAR VOLUME 95.5 fL (81.0-99.0); MEAN PLATELET VOLUME 9.6 fL (7.9-10.8); MONOCYTES # (AUTO) 0.8 10^3/uL (0.0-1.0); MONOCYTES % (AUTO) 8.9 %; NEUTROPHILS # (AUTO) 6.2 10^3/uL (1.5-6.6); NEUTROPHILS % (AUTO) 70.6 %; PLT - PLATELET COUNT 137 10^3/uL (130-450); RED CELL DISTRIBUTION WIDTH 13.7 % (12.0-15.0); WHITE BLOOD COUNT 8.7 x10^3/uL (4.8-10.8)
[2023-04-23] MEDS: CIPROFLOXACIN 400 MG/200 ML 400 MG/200 ML BAG IV SCH ×2 (06:16→17:52)
[2023-04-23 06:43] LABS: CALCIUM 8.9 mg/dL (8.5-10.3); CRP - C-REACTIVE PROTEIN 10.5 mg/dL (<0.5); POTASSIUM 3.8 mmol/L (3.5-4.5)
[2023-04-23] MEDS: CHOLECALCIFEROL 400 UNIT TABLET PO SCH (08:23)
[2023-04-23] MEDS: MULTIVITAMIN TABLET PO SCH (08:23)
[2023-04-23] MEDS: SERTRALINE 50 MG TABLET PO SCH (08:23)
[2023-04-23] MEDS: FLUTICASONE NASAL SPRAY NAS SCH (08:24)
[2023-04-23] MEDS: INSULIN LISPRO 300 UNIT/3 ML PEN SUBQ SCH ×4 (08:24→21:10)
--- NOTE | 2023-04-23 08:35 | PROVIDER PROGRESS NOTE ---
Assessment/Plan - Problem List (1) Sepsis associated hypotension Assessment/Plan: Improved, blood pressure has been stable, leukocytosis resolved. However CRP increased to 10.5 Overall patient feels better, no further bloody stool Continue with IV Cipro and Flagyl Encourage oral intake (2) Acute anemia Assessment/Plan: Hemoglobin 10 likely due to GI blood loss At admission hemoglobin was 15. Patient had bloody stool, which can be from ischemic bowel presentation. No indication for transfusion at this point (3) NICK (acute kidney injury) Assessment/Plan: Resolved Creatinine back down to 1.0, EGFR 55 Encouraged oral intake (4) Metabolic acidosis Assessment/Plan: Resolved Normal bicarb and anion gap (5) PVD (peripheral vascular disease) Assessment/Plan: Stable, patient report leg pain is improved (6) Diabetes mellitus type 2 in obese Assessment/Plan: Blood glucose is in 100-1 40, stable Insulin sliding scale - Current Meds Current Meds: Current Medications Generic Name Dose Route Start Last Admin Trade Name Freq PRN Reason Stop Dose Admin Acetaminophen 650 mg 04/21/23 17:05 04/22/23 06:13 Acetaminophen 325 Mg Tablet PO 650 mg Q4HR PRN Administration Pain 1 to 4, or Fever Cholecalciferol 800 unit 04/22/23 09:00 04/23/23 08:23 Cholecalciferol 400 Unit Tablet PO 800 unit DAILY [facility] Administration Fluticasone Propionate 1 sprays 04/22/23 10:00 04/23/23 08:24 Fluticasone Nasal [place] ROSE Not Given DAILY [facility] Gabapentin 100 mg 04/22/23 14:00 04/23/23 05:15 Gabapentin 100 Mg Capsule PO 100 mg TID [facility] Administration Hydromorphone HCl 0.5 mg 04/21/23 17:05 04/22/23 00:15 Hydromorphone 0.5 Mg/0.5 Ml Syringe IVP 0.5 mg Q2H PRN Administration Pain 8 to 10 Ciprofloxacin 400 mg in 200 mls @ 200 mls/hr 04/21/23 18:00 04/23/23 06:16 Cipro 400 Mg/200 Ml IV 200 mls/hr Q12H [facility] Administration Metronidazole 500 mg in 100 mls @ 100 mls/hr 04/22/23 05:00 04/23/23 06:17 Flagyl 500 Mg/100 Ml IV Infused Q8H [facility] Infusion Insulin Human Lispro 1 - 5 unit 04/21/23 21:00 04/23/23 08:24 Insulin Lispro 300 Unit/3 Ml Pen SUBQ Not Given 0800,1200,1700,2100 [facility] Protocol Multi-Ingredient Ointment 1 applic 04/22/23 13:44 04/22/23 14:31 Zinc Oxide 20% Oint 30 Gm Tube TOP 1 applic PRN PRN Administration Skin Care Multivitamins 1 tab 04/22/23 18:00 04/23/23 08:23 Multivitamin Tablet PO 1 tab DAILY [facility] Administration Oxycodone HCl 5 mg 04/21/23 17:05 04/22/23 16:21 Oxycodone 5 Mg Tablet PO 5 mg Q4HR PRN Administration Pain 5 to 7 Sertraline HCl 50 mg 04/22/23 09:00 04/23/23 08:23 Sertraline 50 Mg Tablet PO 50 mg DAILY [facility] Administration Sodium Chloride 10 ml 04/22/23 01:00 04/23/23 08:24 Sodium Chloride Flush 0.9% 10 Ml Syringe IVP Not Given 0100,0900,1700 [facility] - Lab Result Fish Bone Diagrams: 04/23/23 05:55 04/23/23 05:55 - Additional Planning My Orders: My Active Orders 04/22/23 09:00 Cholecalciferol [Vitamin D3] 800 unit PO DAILY Sertraline [Zoloft] 50 mg PO DAILY 04/22/23 10:00 Fluticasone [Flonase] 1 sprays ROSE DAILY 04/22/23 13:44 Zinc Oxide 20% Oint [Zinc Oxide] 1 applic TOP PRN PRN 04/22/23 14:00 Gabapentin [Neurontin] 100 mg PO TID 04/22/23 15:15 SCDs [RC] QSHIFT 04/22/23 18:00 Multivitamin [Theragran] 1 tab PO DAILY 04/22/23 22:32 Cod Liver Oil/Zinc Oxide [Desitin] 113 gm TOP PRN PRN 04/23/23 05:39 Home CPAP/BiPAP [RC] .ONCE 04/24/23 05:00 BMP - BASIC METABOLIC PANEL [CHEM] DAILYLAB CBC [CBC - COMP BLD CT W/AUTO DIFF] [HEME] DAILYLAB 04/25/23 05:00 BMP - BASIC METABOLIC PANEL [CHEM] DAILYLAB CBC [CBC - COMP BLD CT W/AUTO DIFF] [HEME] DAILYLAB 04/26/23 05:00 BMP - BASIC METABOLIC PANEL [CHEM] DAILYLAB CBC [CBC - COMP BLD CT W/AUTO DIFF] [HEME] DAILYLAB Subjective - Subjective Patient Reports: Feeling Better (Reports leg pain has improved as well. No further abdominal pain or diarrhea) Objective Vital Signs: Vital Signs - 24 hr 04/22/23 04/22/23 04/22/23 10:32 11:15 16:00 Temperature 36.6 C 36.5 C Heart Rate [ 86 Brachial] Heart Rate [ 88 Radial] Respiratory 18 20 Rate Blood Pressure 133/48 H 129/57 L [Brachial artery] Blood Pressure [Left Brachial artery] Blood Pressure 112/46 L [Right Radial artery] O2 Saturation 97 99 04/22/23 04/23/23 04/23/23 21:00 00:58 05:00 Temperature 36.5 C 36.5 C 36.6 C Heart Rate [ 72 Brachial] Heart Rate [ 99 93 Radial] Respiratory 18 20 18 Rate Blood Pressure 144/58 H [Brachial artery] Blood Pressure 124/60 [Left Brachial artery] Blood Pressure 131/45 H [Right Radial artery] O2 Saturation 96 96 95 04/23/23 07:42 Temperature 36.4 C L Heart Rate [ 85 Brachial] Heart Rate [ Radial] Respiratory 18 Rate Blood Pressure 142/54 H [Brachial artery] Blood Pressure [Left Brachial artery] Blood Pressure [Right Radial artery] O2 Saturation 96 Oxygen O2 Source Room air I&O (Last 24 Hrs): Intake and Output Totals x24h 04/21/23 04/22/23 04/23/23 23:59 23:59 23:59 Intake Total 2250 3603 300 Output Total 150 1270 Balance 2100 2333 300 General: Alert, Oriented x3, Cooperative HEENT: PERRLA, EOMI Neck: Supple, No JVD Neuro: Alert, CN 2-12 Grossly Intact Cardiovascular: Regular rate, Normal S1, Normal S2 Respiratory: Chest non-tender, No respiratory distress Abdomen: Normal bowel sounds, No tenderness Extremities: No clubbing, No edema - Results Results: Laboratory Results WBC 8.7 x10^3/uL (4.8-10.8) 04/23/23 05:55 RBC 3.10 10^6/uL (4.20-5.40) L 04/23/23 05:55 Hgb 10.0 g/dL (12.0-16.0) L 04/23/23 05:55 Hct 29.6 % (37.0-47.0) L 04/23/23 05:55 MCV 95.5 fL (81.0-99.0) 04/23/23 05:55 MCH 32.3 pg (27.0-31.0) H 04/23/23 05:55 MCHC 33.8 g/dL (32.0-36.0) 04/23/23 05:55 RDW 13.7 % (12.0-15.0) 04/23/23 05:55 Plt Count 137 10^3/uL (130-450) 04/23/23 05:55 MPV 9.6 fL (7.9-10.8) 04/23/23 05:55 Neut # (Auto) 6.2 10^3/uL (1.5-6.6) 04/23/23 05:55 Lymph # (Auto) 1.6 10^3/uL (1.5-3.5) 04/23/23 05:55 [place] # (Auto) 0.8 10^3/uL (0.0-1.0) 04/23/23 05:55 Eos # (Auto) 0.1 10^3/uL (0.0-0.7) 04/23/23 05:55 Baso # (Auto) 0.0 10^3/uL (0.0-0.1) 04/23/23 05:55 Absolute Nucleated RBC 0.00 x10^3/uL 04/23/23 05:55 Total Counted 100 04/21/23 13:10 Band Neuts % (Manual) 14 % (0-10) H 04/21/23 13:10 Reactive Lymphs % (Man) 5 % 04/21/23 13:10 Abnorm Lymph % (Manual) 0 % 04/21/23 13:10 Myelocytes % 1 % (-0) H 04/21/23 13:10 Nucleated RBC % 0.0 /100WBC 04/23/23 05:55 Neutrophils # (Manual) 24.5 10^3/uL (1.5-6.6) H 04/21/23 13:10 Lymphocytes # (Manual) 2.2 10^3/uL (1.5-3.5) 04/21/23 13:10 Monocytes # (Manual) 0.3 10^3/uL (0.0-1.0) 04/21/23 13:10 Eosinophils # (Manual) 0.0 10^3/uL (0-0.7) 04/21/23 13:10 Basophils # (Manual) 0.0 10^3/uL (0-0.1) 04/21/23 13:10 Differential Comment MANUAL DIFFERENTIAL 04/21/23 13:10 Platelet Morphology NORMAL APPEARANCE (NORMAL) 04/21/23 13:10 RBC Morph Micro Appear 1+ ANISOCYTOSIS (NORMAL) 04/21/23 13:10 Sodium 140 mmol/L (135-145) 04/23/23 05:55 Potassium 3.8 mmol/L (3.5-4.5) 04/23/23 05:55 Chloride 109 mmol/L (101-111) 04/23/23 05:55 Carbon Dioxide 21 mmol/L (21-32) 04/23/23 05:55 Anion Gap 10.0 (6-13) 04/23/23 05:55 BUN 17 mg/dL (6-20) 04/23/23 05:55 Creatinine 1.0 mg/dL (0.6-1.3) 04/23/23 05:55 Estimated GFR (MDRD) 55 (>89) L 04/23/23 05:55 Glucose 113 mg/dL (74-104) H 04/23/23 05:55 POC Whole Bld Glucose 119 mg/dL (70 - 100) H 04/23/23 07:43 Lactic Acid 1.8 mmol/L (0.5-2.2) 04/21/23 14:18 Calcium 8.9 mg/dL (8.5-10.3) 04/23/23 05:55 Total Bilirubin 0.4 mg/dL (0.2-1.0) 04/21/23 13:10 AST 32 IU/L (10-42) 04/21/23 13:10 ALT 29 IU/L (10-60) 04/21/23 13:10 Alkaline Phosphatase 39 IU/L (42-121) L 04/21/23 13:10 C-Reactive Protein 10.5 mg/dL (<0.5) H 04/23/23 05:55 B-Natriuretic Peptide 173 pg/mL (5-100) H 04/23/23 05:55 Total Protein 7.5 g/dL (6.4-8.9) 04/21/23 13:10 Albumin 4.5 g/dL (3.2-5.5) 04/21/23 13:10 Globulin 3.0 g/dL (2.1-4.2) 04/21/23 13:10 Albumin/Globulin Ratio 1.5 (1.0-2.2) 04/21/23 13:10 Lipase 33 U/L (11-82) 04/22/23 05:08 Urine Color YELLOW 04/22/23 08:15 Urine Clarity SL. CLOUDY (CLEAR) 04/22/23 08:15 Urine pH 5.5 PH (5.0-7.5) 04/22/23 08:15 Ur Specific [place] 1.020 (1.002-1.030) 04/22/23 08:15 Urine Protein TRACE mg/dL (NEGATIVE) 04/22/23 08:15 Urine Glucose (UA) NEGATIVE mg/dL (NEGATIVE) 04/22/23 08:15 Urine Ketones NEGATIVE mg/dL (NEGATIVE) 04/22/23 08:15 Urine Occult Blood LARGE (NEGATIVE) H 04/22/23 08:15 Urine Nitrite NEGATIVE (NEGATIVE) 04/22/23 08:15 Urine Bilirubin NEGATIVE (NEGATIVE) 04/22/23 08:15 Urine Urobilinogen 0.2 (NORMAL) E.U./dL (NORMAL) 04/22/23 08:15 Ur Leukocyte Esterase MODERATE (NEGATIVE) H 04/22/23 08:15 Urine RBC 11-25 /HPF (0-5) H 04/22/23 08:15 Urine WBC >25 /HPF (0-5) H 04/22/23 08:15 Ur Squamous Epith Cells FEW Squamous (<= Few) 04/22/23 08:15 Urine Bacteria Moderate /HPF (None Seen) H 04/22/23 08:15 Ur Microscopic Review INDICATED 04/22/23 08:15 Urine Culture Comments INDICATED 04/22/23 08:15 Sepsis Event Note (H) - Evaluation Current Stage of Sepsis: Severe sepsis ABX Reporting Has patient been on IV antibiotics over the past 48 hours?: Yes Current Medications - Current Medications Current Medications: Active Medications Acetaminophen (Acetaminophen 325 Mg Tablet) 650 mg PO Q4HR PRN PRN Reason: Pain 1 to 4, or Fever Last Admin: 04/23/23 15:40 Dose: 650 mg Cholecalciferol (Cholecalciferol 400 Unit Tablet) 800 unit PO DAILY [facility] Last Admin: 04/23/23 08:23 Dose: 800 unit Fluticasone Propionate (Fluticasone Nasal [place]) 1 sprays ROSE DAILY [facility] Last Admin: 04/23/23 08:24 Dose: Not Given Gabapentin (Gabapentin 100 Mg Capsule) 100 mg PO TID [facility] Last Admin: 04/23/23 14:25 Dose: 100 mg Hydromorphone HCl (Hydromorphone 0.5 Mg/0.5 Ml Syringe) 0.5 mg IVP Q2H PRN PRN Reason: Pain 8 to 10 Last Admin: 04/22/23 00:15 Dose: 0.5 mg Ciprofloxacin (Cipro 400 Mg/200 Ml) 400 mg in 200 mls @ 200 mls/hr IV Q12H [facility] Last Infusion: 04/23/23 07:16 Dose: Infused Metronidazole (Flagyl 500 Mg/100 Ml) 500 mg in 100 mls @ 100 mls/hr IV Q8H [facility] Last Infusion: 04/23/23 14:15 Dose: Infused Insulin Human Lispro (Insulin Lispro 300 Unit/3 Ml Pen) 1 - 5 unit SUBQ 0800,1200,1700,2100 [facility]; Protocol Last Admin: 04/23/23 11:45 Dose: Not Given Multi-Ingredient Ointment (Zinc Oxide 20% Oint 30 Gm Tube) 1 applic TOP PRN PRN PRN Reason: Skin Care Last Admin: 04/22/23 14:31 Dose: 1 applic Multivitamins (Multivitamin Tablet) 1 tab PO DAILY [facility] Last Admin: 04/23/23 08:23 Dose: 1 tab Nystatin (Nystatin Powder 15 Gm) 1 applic TOP BID [facility] Last Admin: 04/23/23 13:11 Dose: 1 applic Ondansetron HCl (Ondansetron Odt 4 Mg Tablet) 4 mg TL Q6HR PRN PRN Reason: Nausea / Vomiting Oxycodone HCl (Oxycodone 5 Mg Tablet) 5 mg PO Q4HR PRN PRN Reason: Pain 5 to 7 Last Admin: 04/22/23 16:21 Dose: 5 mg Prochlorperazine Edisylate (Prochlorperazine 10 Mg/2 Ml Vial) 10 mg IVP Q6HR PRN PRN Reason: Nausea / Vomiting Sertraline HCl (Sertraline 50 Mg Tablet) 50 mg PO DAILY [facility] Last Admin: 04/23/23 08:23 Dose: 50 mg Sodium Chloride (Sodium Chloride Flush 0.9% 10 Ml Syringe) 10 ml IVP PRN PRN PRN Reason: NEEDED PER PROVIDER ORDERS Sodium Chloride (Sodium Chloride Flush 0.9% 10 Ml Syringe) 10 ml IVP 0100,0900,1700 [facility] Last Admin: 04/23/23 08:24 Dose: Not Given Zinc Oxide (Cod Liver Oil/Zinc Oxide 113 Gm Tube) 113 gm TOP PRN PRN PRN Reason: Skin Care Aspirin [Aspirin EC] 81 mg PO DAILY 08/19/20 Rosuvastatin Calcium [Crestor] 20 mg PO DAILY 08/19/20 Sertraline [Zoloft] 50 mg PO DAILY 08/19/20 Amlodipine Besylate [Norvasc] 10 mg PO DAILY 04/22/23 Furosemide [Lasix] 20 mg PO DAILY 04/22/23 Liraglutide [Victoza 2-Gerardo] 1.2 mg SUBQ DAILY 04/22/23 Lisinopril [Zestril] 40 mg PO DAILY 04/22/23
[2023-04-23] MEDS: ACETAMINOPHEN 325 MG TABLET PO PRN ×2 (08:39→15:40)
[2023-04-23] MEDS: NYSTATIN POWDER 15 GM TOP SCH ×2 (13:11→21:11)
[2023-04-24] MEDS: ACETAMINOPHEN 325 MG TABLET PO PRN ×2 (05:05→14:04)
[2023-04-24] MEDS: GABAPENTIN 100 MG CAPSULE PO SCH ×3 (05:05→21:13)
[2023-04-24] MEDS: metroNIDAZOLE 500 MG/100 ML 500 MG/100 ML BAG IV SCH (05:05)
[2023-04-24 05:08] LABS: BASOPHILS % (AUTO) 0.7 %; EOSINOPHILS # (AUTO) 0.1 10^3/uL (0.0-0.7); EOSINOPHILS % (AUTO) 2.2 %; HGB - HEMOGLOBIN 10.7 g/dL (12.0-16.0); LYMPHOCYTES # (AUTO) 1.5 10^3/uL (1.5-3.5); LYMPHOCYTES % (AUTO) 24.5 %; MEAN CORPUSCULAR HEMOGLOBIN 32.2 pg (27.0-31.0); MEAN CORPUSCULAR HGB CONC 33.4 g/dL (32.0-36.0); MEAN CORPUSCULAR VOLUME 96.4 fL (81.0-99.0); MEAN PLATELET VOLUME 9.7 fL (7.9-10.8); MONOCYTES # (AUTO) 0.6 10^3/uL (0.0-1.0); MONOCYTES % (AUTO) 9.3 %; NEUTROPHILS # (AUTO) 3.7 10^3/uL (1.5-6.6); NEUTROPHILS % (AUTO) 62.5 %; PLT - PLATELET COUNT 137 10^3/uL (130-450); RED BLOOD COUNT 3.32 10^6/uL (4.20-5.40); RED CELL DISTRIBUTION WIDTH 13.8 % (12.0-15.0); WHITE BLOOD COUNT 5.9 x10^3/uL (4.8-10.8)
[2023-04-24 05:47] LABS: CALCIUM 9.2 mg/dL (8.5-10.3); CREATININE 0.9 mg/dL (0.6-1.3); POTASSIUM 3.9 mmol/L (3.5-4.5)
[2023-04-24] MEDS: CIPROFLOXACIN 400 MG/200 ML 400 MG/200 ML BAG IV SCH (06:13)
--- NOTE | 2023-04-24 08:01 | PROVIDER PROGRESS NOTE ---
Assessment/Plan - Problem List (1) Sepsis associated hypotension Assessment/Plan: Resolved, Switch IV Cipro and Flagyl to oral, observe, if If continue improving, considering discharge to home tomorrow (2) Acute anemia Assessment/Plan: Stable hemoglobin Continue monitoring (3) NICK (acute kidney injury) Assessment/Plan: Resolved, creatinine 0.9 today (4) Metabolic acidosis Assessment/Plan: Resolved (5) PVD (peripheral vascular disease) Assessment/Plan: Stable (6) Diabetes mellitus type 2 in obese Assessment/Plan: Controlled - Current Meds Current Meds: Current Medications Generic Name Dose Route Start Last Admin Trade Name Freq PRN Reason Stop Dose Admin Acetaminophen 650 mg 04/21/23 17:05 04/24/23 05:05 Acetaminophen 325 Mg Tablet PO 650 mg Q4HR PRN Administration Pain 1 to 4, or Fever Cholecalciferol 800 unit 04/22/23 09:00 04/23/23 08:23 Cholecalciferol 400 Unit Tablet PO 800 unit DAILY [facility] Administration Fluticasone Propionate 1 sprays 04/22/23 10:00 04/23/23 08:24 Fluticasone Nasal [place] ROSE Not Given DAILY [facility] Gabapentin 100 mg 04/22/23 14:00 04/24/23 05:05 Gabapentin 100 Mg Capsule PO 100 mg TID [facility] Administration Hydromorphone HCl 0.5 mg 04/21/23 17:05 04/22/23 00:15 Hydromorphone 0.5 Mg/0.5 Ml Syringe IVP 0.5 mg Q2H PRN Administration Pain 8 to 10 Ciprofloxacin 400 mg in 200 mls @ 200 mls/hr 04/21/23 18:00 04/24/23 06:13 Cipro 400 Mg/200 Ml IV 200 mls/hr Q12H [facility] Administration Metronidazole 500 mg in 100 mls @ 100 mls/hr 04/22/23 05:00 04/24/23 06:13 Flagyl 500 Mg/100 Ml IV Infused Q8H [facility] Infusion Insulin Human Lispro 1 - 5 unit 04/21/23 21:00 04/23/23 21:10 Insulin Lispro 300 Unit/3 Ml Pen SUBQ Not Given 0800,1200,1700,2100 [facility] Protocol Multi-Ingredient Ointment 1 applic 04/22/23 13:44 04/22/23 14:31 Zinc Oxide 20% Oint 30 Gm Tube TOP 1 applic PRN PRN Administration Skin Care Multivitamins 1 tab 04/22/23 18:00 04/23/23 08:23 Multivitamin Tablet PO 1 tab DAILY [facility] Administration Nystatin 1 applic 04/23/23 12:00 04/23/23 21:11 Nystatin Powder 15 Gm TOP 1 applic BID [facility] Administration Oxycodone HCl 5 mg 04/21/23 17:05 04/22/23 16:21 Oxycodone 5 Mg Tablet PO 5 mg Q4HR PRN Administration Pain 5 to 7 Sertraline HCl 50 mg 04/22/23 09:00 04/23/23 08:23 Sertraline 50 Mg Tablet PO 50 mg DAILY [facility] Administration Sodium Chloride 10 ml 04/21/23 17:05 04/24/23 05:06 Sodium Chloride Flush 0.9% 10 Ml Syringe IVP 10 ml PRN PRN Administration NEEDED PER PROVIDER ORDERS Sodium Chloride 10 ml 04/22/23 01:00 04/23/23 23:46 Sodium Chloride Flush 0.9% 10 Ml Syringe IVP 10 ml 0100,0900,1700 [facility] Administration - Lab Result Lab results reviewed: Yes Fish Bone Diagrams: 04/24/23 04:26 04/24/23 04:26 - Diagnostic Imaging Results Diagnostic Imaging Results: Final report reviewed - Additional Planning Condition/Complexity: Improved My Orders: My Active Orders 04/23/23 12:00 Nystatin [Nystop] 1 applic TOP BID 04/24/23 08:00 metroNIDAZOLE [Flagyl] 500 mg PO TIDWM 04/24/23 09:00 Ciprofloxacin [Cipro] 250 mg PO BID 04/25/23 05:00 BMP - BASIC METABOLIC PANEL [CHEM] DAILYLAB CBC [CBC - COMP BLD CT W/AUTO DIFF] [HEME] DAILYLAB 04/26/23 05:00 BMP - BASIC METABOLIC PANEL [CHEM] DAILYLAB CBC [CBC - COMP BLD CT W/AUTO DIFF] [HEME] DAILYLAB Plan Discussed with:: Patient Time Spent: 15-30 minutes Subjective - Subjective Patient Reports: Feeling Better (Passing gas) Nursing Reports: No Complaints (Reports the leg pain is subsided, but start concerned no bowel movement for the past 2 days) Objective Vital Signs: Vital Signs - 24 hr 04/23/23 04/23/23 04/23/23 11:17 16:04 19:44 Temperature 36.6 C 36.4 C L 36.5 C Heart Rate [ 88 Brachial] Heart Rate [ 74 88 Radial] Respiratory 16 16 18 Rate Blood Pressure 135/48 H [Brachial artery] Blood Pressure 137/59 H [Left Brachial artery] Blood Pressure 135/61 H [Right Radial artery] O2 Saturation 92 96 95 04/23/23 04/23/23 04/24/23 20:52 23:44 05:28 Temperature 36.7 C 36.5 C 36.6 C Heart Rate [ Brachial] Heart Rate [ 77 85 80 Radial] Respiratory 16 18 16 Rate Blood Pressure [Brachial artery] Blood Pressure [Left Brachial artery] Blood Pressure 146/69 H 140/58 H 153/67 H [Right Radial artery] O2 Saturation 96 95 96 04/24/23 07:30 Temperature 36.7 C Heart Rate [ Brachial] Heart Rate [ 78 Radial] Respiratory 18 Rate Blood Pressure [Brachial artery] Blood Pressure [Left Brachial artery] Blood Pressure 171/65 H [Right Radial artery] O2 Saturation 94 Oxygen O2 Source Room air I&O (Last 24 Hrs): Intake and Output Totals x24h 04/22/23 04/23/23 04/24/23 23:59 23:59 23:59 Intake Total 3603 2260 100 Output Total 1270 Balance 2333 2260 100 General: Alert, Oriented x3 HEENT: PERRLA, EOMI Neck: Supple, No JVD Neuro: Alert, CN 2-12 Grossly Intact Cardiovascular: Regular rate Respiratory: Chest non-tender, No respiratory distress Abdomen: Normal bowel sounds, Soft, Other (Hypo bowel sounds) - Results Results: Laboratory Results WBC 5.9 x10^3/uL (4.8-10.8) 04/24/23 04:26 RBC 3.32 10^6/uL (4.20-5.40) L 04/24/23 04:26 Hgb 10.7 g/dL (12.0-16.0) L 04/24/23 04:26 Hct 32.0 % (37.0-47.0) L 04/24/23 04:26 MCV 96.4 fL (81.0-99.0) 04/24/23 04:26 MCH 32.2 pg (27.0-31.0) H 04/24/23 04:26 MCHC 33.4 g/dL (32.0-36.0) 04/24/23 04: RDW 13.8 % (12.0-15.0) 04/24/23 04:26 Plt Count 137 10^3/uL (130-450) 04/24/23 04:26 MPV 9.7 fL (7.9-10.8) 04/24/23 04: Neut # (Auto) 3.7 10^3/uL (1.5-6.6) 04/24/23 04:26 Lymph # (Auto) 1.5 10^3/uL (1.5-3.5) 04/24/23 04: [place] # (Auto) 0.6 10^3/uL (0.0-1.0) 04/24/23 04: Eos # (Auto) 0.1 10^3/uL (0.0-0.7) 04/24/23 04: Baso # (Auto) 0.0 10^3/uL (0.0-0.1) 04/24/23 04:26 Absolute Nucleated RBC 0.00 x10^3/uL 04/24/23 04:26 Total Counted 100 04/21/23 13:10 Band Neuts % (Manual) 14 % (0-10) H 04/21/23 13:10 Reactive Lymphs % (Man) 5 % 04/21/23 13:10 Abnorm Lymph % (Manual) 0 % 04/21/23 13:10 Myelocytes % 1 % (-0) H 04/21/23 13:10 Nucleated RBC % 0.0 /100WBC 04/24/23 04:26 Neutrophils # (Manual) 24.5 10^3/uL (1.5-6.6) H 04/21/23 13:10 Lymphocytes # (Manual) 2.2 10^3/uL (1.5-3.5) 04/21/23 13:10 Monocytes # (Manual) 0.3 10^3/uL (0.0-1.0) 04/21/23 13:10 Eosinophils # (Manual) 0.0 10^3/uL (0-0.7) 04/21/23 13:10 Basophils # (Manual) 0.0 10^3/uL (0-0.1) 04/21/23 13:10 Differential Comment MANUAL DIFFERENTIAL 04/21/23 13:10 Platelet Morphology NORMAL APPEARANCE (NORMAL) 04/21/23 13:10 RBC Morph Micro Appear 1+ ANISOCYTOSIS (NORMAL) 04/21/23 13:10 Sodium 143 mmol/L (135-145) 04/24/23 04:26 Potassium 3.9 mmol/L (3.5-4.5) 04/24/23 04:26 Chloride 111 mmol/L (101-111) 04/24/23 04:26 Carbon Dioxide 23 mmol/L (21-32) 04/24/23 04:26 Anion Gap 9.0 (6-13) 04/24/23 04:26 BUN 16 mg/dL (6-20) 04/24/23 04:26 Creatinine 0.9 mg/dL (0.6-1.3) 04/24/23 04:26 Estimated GFR (MDRD) 63 (>89) L 04/24/23 04:26 Glucose 119 mg/dL (74-104) H 04/24/23 04:26 POC Whole Bld Glucose 129 mg/dL (70 - 100) H 04/24/23 07:29 Lactic Acid 1.8 mmol/L (0.5-2.2) 04/21/23 14:18 Calcium 9.2 mg/dL (8.5-10.3) 04/24/23 04:26 Total Bilirubin 0.4 mg/dL (0.2-1.0) 04/21/23 13:10 AST 32 IU/L (10-42) 04/21/23 13:10 ALT 29 IU/L (10-60) 04/21/23 13:10 Alkaline Phosphatase 39 IU/L (42-121) L 04/21/23 13:10 C-Reactive Protein 10.5 mg/dL (<0.5) H 04/23/23 05:55 B-Natriuretic Peptide 173 pg/mL (5-100) H 04/23/23 05:55 Total Protein 7.5 g/dL (6.4-8.9) 04/21/23 13:10 Albumin 4.5 g/dL (3.2-5.5) 04/21/23 13:10 Globulin 3.0 g/dL (2.1-4.2) 04/21/23 13:10 Albumin/Globulin Ratio 1.5 (1.0-2.2) 04/21/23 13:10 Lipase 33 U/L (11-82) 04/22/23 05:08 Urine Color YELLOW 04/22/23 08:15 Urine Clarity SL. CLOUDY (CLEAR) 04/22/23 08:15 Urine pH 5.5 PH (5.0-7.5) 04/22/23 08:15 Ur Specific [place] 1.020 (1.002-1.030) 04/22/23 08:15 Urine Protein TRACE mg/dL (NEGATIVE) 04/22/23 08:15 Urine Glucose (UA) NEGATIVE mg/dL (NEGATIVE) 04/22/23 08:15 Urine Ketones NEGATIVE mg/dL (NEGATIVE) 04/22/23 08:15 Urine Occult Blood LARGE (NEGATIVE) H 04/22/23 08:15 Urine Nitrite NEGATIVE (NEGATIVE) 04/22/23 08:15 Urine Bilirubin NEGATIVE (NEGATIVE) 04/22/23 08:15 Urine Urobilinogen 0.2 (NORMAL) E.U./dL (NORMAL) 04/22/23 08:15 Ur Leukocyte Esterase MODERATE (NEGATIVE) H 04/22/23 08:15 Urine RBC 11-25 /HPF (0-5) H 04/22/23 08:15 Urine WBC >25 /HPF (0-5) H 04/22/23 08:15 Ur Squamous Epith Cells FEW Squamous (<= Few) 04/22/23 08:15 Urine Bacteria Moderate /HPF (None Seen) H 04/22/23 08:15 Ur Microscopic Review INDICATED 04/22/23 08:15 Urine Culture Comments INDICATED 04/22/23 08:15 Sepsis Event Note (H) - Evaluation Current Stage of Sepsis: Severe sepsis ABX Reporting Has patient been on IV antibiotics over the past 48 hours?: Yes Current Medications - Current Medications Current Medications: Active Medications Acetaminophen (Acetaminophen 325 Mg Tablet) 650 mg PO Q4HR PRN PRN Reason: Pain 1 to 4, or Fever Last Admin: 04/24/23 05:05 Dose: 650 mg Calcium Carbonate/Glycine (Calcium Carbonate Chew 500 Mg Tablet) 500 mg PO 1000,2200 [facility] Cholecalciferol (Cholecalciferol 400 Unit Tablet) 800 unit PO DAILY [facility] Last Admin: 04/24/23 08:35 Dose: 800 unit Ciprofloxacin (Ciprofloxacin 250 Mg Tablet) 500 mg PO BID [facility] Fluticasone Propionate (Fluticasone Nasal [place]) 1 sprays ROSE DAILY [facility] Last Admin: 04/24/23 08:36 Dose: Not Given Gabapentin (Gabapentin 100 Mg Capsule) 100 mg PO TID [facility] Last Admin: 04/24/23 05:05 Dose: 100 mg Hydromorphone HCl (Hydromorphone 0.5 Mg/0.5 Ml Syringe) 0.5 mg IVP Q2H PRN PRN Reason: Pain 8 to 10 Last Admin: 04/22/23 00:15 Dose: 0.5 mg Insulin Human Lispro (Insulin Lispro 300 Unit/3 Ml Pen) 1 - 5 unit SUBQ 0800,1200,1700,2100 [facility]; Protocol Last Admin: 04/24/23 12:04 Dose: Not Given Metronidazole (Metronidazole 250 Mg Tablet) 500 mg PO TIDWM [facility] Last Admin: 04/24/23 12:04 Dose: 500 mg Multi-Ingredient Ointment (Zinc Oxide 20% Oint 30 Gm Tube) 1 applic TOP PRN PRN PRN Reason: Skin Care Last Admin: 04/22/23 14:31 Dose: 1 applic Multivitamins (Multivitamin Tablet) 1 tab PO 1200 [facility] Nystatin (Nystatin Powder 15 Gm) 1 applic TOP BID [facility] Last Admin: 04/24/23 08:36 Dose: 1 applic Ondansetron HCl (Ondansetron Odt 4 Mg Tablet) 4 mg TL Q6HR PRN PRN Reason: Nausea / Vomiting Oxycodone HCl (Oxycodone 5 Mg Tablet) 5 mg PO Q4HR PRN PRN Reason: Pain 5 to 7 Last Admin: 04/22/23 16:21 Dose: 5 mg Prochlorperazine Edisylate (Prochlorperazine 10 Mg/2 Ml Vial) 10 mg IVP Q6HR PRN PRN Reason: Nausea / Vomiting Sertraline HCl (Sertraline 50 Mg Tablet) 50 mg PO DAILY [facility] Last Admin: 04/24/23 08:36 Dose: 50 mg Sodium Chloride (Sodium Chloride Flush 0.9% 10 Ml Syringe) 10 ml IVP PRN PRN PRN Reason: NEEDED PER PROVIDER ORDERS Last Admin: 04/24/23 05:06 Dose: 10 ml Sodium Chloride (Sodium Chloride Flush 0.9% 10 Ml Syringe) 10 ml IVP 0100,0900,1700 [facility] Last Admin: 04/24/23 08:36 Dose: 10 ml Zinc Oxide (Cod Liver Oil/Zinc Oxide 113 Gm Tube) 113 gm TOP PRN PRN PRN Reason: Skin Care Aspirin [Aspirin EC] 81 mg PO DAILY 08/19/20 Rosuvastatin Calcium [Crestor] 20 mg PO DAILY 08/19/20 Sertraline [Zoloft] 50 mg PO DAILY 08/19/20 Amlodipine Besylate [Norvasc] 10 mg PO DAILY 04/22/23 Furosemide [Lasix] 20 mg PO DAILY 04/22/23 Liraglutide [Victoza 2-Gerardo] 1.2 mg SUBQ DAILY 04/22/23 Lisinopril [Zestril] 40 mg PO DAILY 04/22/23
[2023-04-24] MEDS: INSULIN LISPRO 300 UNIT/3 ML PEN SUBQ SCH ×4 (08:26→21:13)
[2023-04-24] MEDS: CHOLECALCIFEROL 400 UNIT TABLET PO SCH (08:35)
[2023-04-24] MEDS: SERTRALINE 50 MG TABLET PO SCH (08:36)
[2023-04-24] MEDS: FLUTICASONE NASAL SPRAY NAS SCH ×2 (08:36→17:16)
[2023-04-24] MEDS: MULTIVITAMIN TABLET PO SCH (08:36)
[2023-04-24] MEDS: SODIUM CHLORIDE FLUSH 0.9% 10 ML SYRINGE IVP SCH ×2 (08:36→17:14)
[2023-04-24] MEDS: NYSTATIN POWDER 15 GM TOP SCH ×2 (08:36→21:18)
[2023-04-24] MEDS: metroNIDAZOLE 250 MG TABLET PO SCH ×2 (12:04→17:13)
[2023-04-24] MEDS: CALCIUM CARBONATE CHEW 500 MG TABLET PO SCH ×2 (14:02→21:12)
[2023-04-24] MEDS: CIPROFLOXACIN 250 MG TABLET PO SCH (21:12)
[2023-04-25] MEDS: SODIUM CHLORIDE FLUSH 0.9% 10 ML SYRINGE IVP SCH ×2 (00:59→09:02)
[2023-04-25] MEDS: ACETAMINOPHEN 325 MG TABLET PO PRN (05:34)
[2023-04-25 05:51] LABS: BASOPHILS % (AUTO) 0.6 %; EOSINOPHILS # (AUTO) 0.1 10^3/uL (0.0-0.7); HCT - HEMATOCRIT 33.2 % (37.0-47.0); HGB - HEMOGLOBIN 10.8 g/dL (12.0-16.0); LYMPHOCYTES # (AUTO) 1.4 10^3/uL (1.5-3.5); LYMPHOCYTES % (AUTO) 29.6 %; MEAN CORPUSCULAR HEMOGLOBIN 31.7 pg (27.0-31.0); MEAN CORPUSCULAR HGB CONC 32.5 g/dL (32.0-36.0); MEAN CORPUSCULAR VOLUME 97.4 fL (81.0-99.0); MONOCYTES # (AUTO) 0.5 10^3/uL (0.0-1.0); MONOCYTES % (AUTO) 9.5 %; NEUTROPHILS # (AUTO) 2.6 10^3/uL (1.5-6.6); NEUTROPHILS % (AUTO) 55.4 %; PLT - PLATELET COUNT 161 10^3/uL (130-450); RED BLOOD COUNT 3.41 10^6/uL (4.20-5.40); RED CELL DISTRIBUTION WIDTH 13.8 % (12.0-15.0); WHITE BLOOD COUNT 4.7 x10^3/uL (4.8-10.8)
[2023-04-25 06:11] LABS: CALCIUM 9.4 mg/dL (8.5-10.3); CREATININE 0.9 mg/dL (0.6-1.3); POTASSIUM 3.8 mmol/L (3.5-4.5)
[2023-04-25] MEDS: INSULIN LISPRO 300 UNIT/3 ML PEN SUBQ SCH ×2 (09:00→12:31)
[2023-04-25] MEDS: metroNIDAZOLE 250 MG TABLET PO SCH (09:00)
[2023-04-25] MEDS: CHOLECALCIFEROL 400 UNIT TABLET PO SCH (09:01)
[2023-04-25] MEDS: SERTRALINE 50 MG TABLET PO SCH (09:01)
[2023-04-25] MEDS: CIPROFLOXACIN 250 MG TABLET PO SCH (09:01)
[2023-04-25] MEDS: FLUTICASONE NASAL SPRAY NAS SCH (09:02)
--- NOTE | 2023-04-25 10:33 | Discharge Plan ---
Discharge Plan Problem Reviewed?: Yes Disposition: Home, Self Care Condition: Good Prescriptions: Ciprofloxacin [Cipro] 500 mg PO BID 3 Days #12 tab metroNIDAZOLE [Flagyl] 500 mg PO TIDWM 3 Days #9 tab Gabapentin [Neurontin] 200 mg PO TID 30 Days #180 cap Cholecalciferol [Vitamin D3] 800 unit PO DAILY #30 tab Diet: Regular Activity Restrictions: Activity as Tolerated Shower Restrictions: No Driving Restrictions: No Weight Bearing: Full Weight Instruction Topics: Peripheral Artery Disease Health Concerns: You may have ischemic bowel which causes your intermittent abdominal pain, diarrhea, bloody stool. Please follow up with your GI and vascular doctors, as we discussed. You may need further imaging of your bowel vessel when you have the abdominal pain episode Plan of Treatment: Complete3 more days Cipro and Flagyl. Follow-up with your GI and vascular doctor Assessment: Sepsis resolved Abdominal pain and diarrhea resolved Acute Kidney injury, resolved Your creatinine 0.9, EGFR 63 on 04/25/2023 No Smoking: If you smoke, Please STOP! Call for help.
--- NOTE | 2023-04-25 10:43 | DISCHARGE SUMMARY ---
"Discharge Summary Admit Date: 04/21/23 Discharge Date: 04/25/23 Discharging Provider: Sushil Reeves Code Status: Attempt Resuscitation Condition at Discharge: Good Discharge Disposition: 01 Home, Self Care - DIAGNOSES Admission Diagnoses: Sepsis NICK Discharge Diagnoses with Status of Each Condition: Sepsis, secondary to enteritis, resolved Acute anemia, stable NICK, resolved Metabolic acidosis, resolved PVD, Stable - HPI History of Present Illness: A 68 years old female class III obesity BMI 43, history of hypertension, diabetes, hyperlipidemia, CHF, solitary kidney, multiple prior abdominal surgeries presented to the ED for episode of nausea vomiting and diarrhea for the past 3 weeks. Worsening in the past 2 days. Patient had poor oral intake along with lower back pain radiating to the bilateral legs worsening to the left. Patient reports when she had diarrhea it was over 10 times a day, along with vomiting. No blood in stool no mucus noted. Mostly watery. Patient reports she was taking 1 week of antibiotics 1 month ago for UTI. Denies any risk of food poisoning, she reports she feels very weak denies any fever any chills does have abdominal pain but it was a dull ache. She reports that she had alcohol use but has not had over 3 weeks although she had 2 cocktails drink the day before presentation. In the ED patient was hypotensive with blood pressure 90/60. Tachycardia with heart rate of 120. Afebrile saturated well on room air. Labs shows WBC 27 bands of 40%, creatinine 2.0 comparing to normal 2 weeks ago. Lactic acid 1.8. Anion gap 20. With cold extremities. 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 Vascular surgery was consulted, states those are chronic condition, no intervention is indicated at this point. CT abdomen shows hernia no sign of incarceration. Does have a sign of enteritis. Blood culture was obtained in the ED patient was given small bolus IV fluid in the ED. - CONSULTS | PROCEDURES Consultations: Her private GI Dr. Morales - HOSPITAL COURSE Hospital Course: After admission patient was given IV fluid, started on Cipro and Flagyl IV, patient gradually improved, leukocytosis gets better each day completely resolved day 3 of hospital stay. Had one-time bloody diarrhea, showed acute on chronic anemia. No further bloody stool noted. Stool sample was not able to be collected due to contamination with urine. Hemoglobin maintained well around 9.6. Patient has elevated CRP to 6.2. I discussed with patient [facility] provider over Jose Morales. Who concerns patient may have ischemic bowel instead of having infectious cause or IBD. Because the last colonoscopy performed was 1-1/2 years ago, only polyps noted. No sign of IBD at that point. Dr. Morales recommends continue with supportive care, follow-up with him as outpatient, he does not recommend GI scope. Patient NICK resolved on day 5 of hospital stay with creatinine back to 1, GFR 63. Patient reports 10 years ago one of her kidney for unknown etiology, she had that removed and was tested but still not sure the reason for the loss of the kidney. Patient continues to improves, switch to oral antibiotics 04/24/2023, tolerated well. Patient is discharged on 04/25/2023 in stable condition, recommend patient continue 3 more days of oral Cipro and Flagyl to complete the treatment course for enteritis. Recommend patient to follow-up with her GI and vascular provider for further care. During hospital stay patient also reports left leg pain improved with gabapentin use, discharged on gabapentin recommend patient to titrate the dose for her symptoms. - ALLERGIES Allergies/Adverse Reactions: Allergies Allergy/AdvReac Type Severity Reaction Status Date / Time No Known Drug Allergies Allergy Verified 04/21/23 10:46 - MEDICATIONS Home Medications: Ambulatory Orders Medication Instructions Recorded Confirmed Aspirin [Aspirin EC] 81 mg PO DAILY 08/19/20 04/22/23 Rosuvastatin Calcium [Crestor] 20 mg PO DAILY 08/19/20 04/22/23 Sertraline [Zoloft] 50 mg PO DAILY 08/19/20 04/22/23 Metoprolol Succinate [Toprol Xl] 100 mg PO DAILY #60 tab.sr 08/21/20 04/22/23 Amlodipine Besylate [Norvasc] 10 mg PO DAILY 04/22/23 04/22/23 Furosemide [Lasix] 20 mg PO DAILY 04/22/23 04/22/23 Liraglutide [Victoza 2-Gerardo] 1.2 mg SUBQ DAILY 04/22/23 04/22/23 Lisinopril [Zestril] 40 mg PO DAILY 04/22/23 04/22/23 Cholecalciferol [Vitamin D3] 800 unit PO DAILY #30 tab 04/25/23 Ciprofloxacin [Cipro] 500 mg PO BID 3 Days #12 tab 04/25/23 Gabapentin [Neurontin] 200 mg PO TID 30 Days #180 cap 04/25/23 metroNIDAZOLE [Flagyl] 500 mg PO TIDWM 3 Days #9 tab 04/25/23 - PHYSICAL EXAM AT DISCHARGE General Appearance: positive: No acute distress, Alert Eyes Bilateral: positive: PERRL, EOMI Neck: positive: Nml inspection Respiratory: positive: Chest non-tender, No respiratory distress Cardiovascular: positive: Regular rate & rhythm Abdomen: positive: Nml bowel sounds, No distention Skin: positive: Color nml, No rash, Warm Extremities: positive: Other (Lower extremities are cold, chronic condition) Neurologic/Psychiatric: positive: Oriented x3, CN's nml (2-12) - LABS Result Diagrams: 04/25/23 04:39 04/25/23 04:39 - DIAGNOSTIC IMAGING Diagnostic Imaging Results: Final report reviewed - SEPSIS Current Stage of Sepsis: Severe sepsis - FOLLOW UP Follow Up: Dr. Ricky Morales, GI - TIME SPENT Time Spent in Discharge (Minutes): 55"
[2023-04-25] MEDS: GABAPENTIN 100 MG CAPSULE PO SCH (10:56)
[2023-04-25] MEDS: NYSTATIN POWDER 15 GM TOP SCH (10:57)
[2023-04-25] MEDS: CALCIUM CARBONATE CHEW 500 MG TABLET PO SCH (10:57)
[2023-04-25 11:24] VITALS: BP 166/67; O2SAT 94
[2023-04-25] MEDS ORDERED: MULTIVITAMIN TABLET PO SCH (12:00)
== END 2023-04-25 13:10 | disposition home or self-care (01) | DRG 872 ==
LOC: EDUNIT# → ED 10:18 → MS2 17:05
PROVIDERS: ADMIT Internal Medicine; ATTEND Internal Medicine
DX: A41.9 Sepsis, unspecified organism (principal); N17.9 Acute kidney failure, unspecified; D72.829 Elevated white blood cell count, unspecified; E87.20 Acidosis, unspecified; Z68.41 Body mass index [BMI] 40.0-44.9, adult; I74.5 Embolism and thrombosis of iliac artery; I74.09 Other arterial embolism and thrombosis of abdominal aorta; R00.0 Tachycardia, unspecified; R65.20 Severe sepsis without septic shock; E11.9 Type 2 diabetes mellitus without complications; I11.0 Hypertensive heart disease with heart failure; K52.9 Noninfective gastroenteritis and colitis, unspecified; E78.00 Pure hypercholesterolemia, unspecified; I73.9 Peripheral vascular disease, unspecified; D64.9 Anemia, unspecified; E66.01 Morbid (severe) obesity due to excess calories; E11.51 Type 2 diabetes mellitus with diabetic peripheral angiopathy without gangrene; M79.605 Pain in left leg; Z87.891 Personal history of nicotine dependence; J44.9 Chronic obstructive pulmonary disease, unspecified; I50.9 Heart failure, unspecified; Z79.85 Long-term (current) use of injectable non-insulin antidiabetic drugs; Z90.5 Acquired absence of kidney
CPT/HCPCS: 36415; 71045; 73502; 74176; 80048; 80053; 81001; 83605; 83690; 83880; 85025; 86140; 87040; 87086; 93005; 93926; 96361; 96374; 96375; 96376; 99285; A9270; J1170; 81003; 83993; 87507

== ENCOUNTER 2023-11-03 07:00 | Outpatient (CLI) | payer MEDICARE, BC ==
--- NOTE | 2023-11-03 14:34 | XRAY Report ---
PROCEDURE: Ribs w/PA Chest 3+V LT INDICATIONS: LEFT SIDED RIB PAIN TECHNIQUE: 2 views of the ribs were acquired, along with a single view chest. COMPARISON: Chest x-ray 04/21/2023 FINDINGS: Surgical changes and devices: None. Bones and chest wall: No fractures or dislocations. No suspicious bony lesions. Overlying soft tis sues appear unremarkable. Lungs and pleura: No pleural effusions or pneumothorax. Lungs appear clear. Mediastinum: Mediastinal contours appear normal. Heart size is normal. IMPRESSION: No visualized acute fracture or dislocation. However, occult injury cannot be excluded. Recommend makayla rt interval imaging follow-up in 7-10 days as clinically indicated for additional evaluation. Reviewed by: Michela Thomas MD on 11/03/2023 2:32 PM PDT Approved by: Michela Thomas MD on 11/03/2023 2:32 PM PDT Station ID: [id number]
== END 2023-11-03 23:59 | disposition home or self-care (01) ==
LOC: DI.S 07:00
PROVIDERS: ATTEND Physician Assistant Medical
DX: R07.81 Pleurodynia (principal); R35.0 Frequency of micturition; R30.0 Dysuria
CPT/HCPCS: 87077; 87086; 87181

== ENCOUNTER 2024-02-29 21:43 | Emergency (ER) | payer MEDICARE, BC ==
[2024-02-29 22:13] LABS: BASOPHILS % (AUTO) 0.5 %; EOSINOPHILS # (AUTO) 0.2 10^3/uL (0.0-0.7); EOSINOPHILS % (AUTO) 1.8 %; HCT - HEMATOCRIT 40.7 % (37.0-47.0); HGB - HEMOGLOBIN 13.2 g/dL (12.0-16.0); LYMPHOCYTES # (AUTO) 1.7 10^3/uL (1.5-3.5); LYMPHOCYTES % (AUTO) 20.5 %; MEAN CORPUSCULAR HEMOGLOBIN 31.4 pg (27.0-31.0); MEAN CORPUSCULAR HGB CONC 32.4 g/dL (32.0-36.0); MEAN CORPUSCULAR VOLUME 96.9 fL (81.0-99.0); MEAN PLATELET VOLUME 9.8 fL (7.9-10.8); MONOCYTES # (AUTO) 0.5 10^3/uL (0.0-1.0); MONOCYTES % (AUTO) 6.5 %; NEUTROPHILS # (AUTO) 5.9 10^3/uL (1.5-6.6); NEUTROPHILS % (AUTO) 70.3 %; PLT - PLATELET COUNT 154 10^3/uL (130-450); RED CELL DISTRIBUTION WIDTH 13.2 % (12.0-15.0); WHITE BLOOD COUNT 8.3 x10^3/uL (4.8-10.8)
[2024-02-29 22:31] LABS: ALBUMIN 4.5 g/dL (3.2-5.5); ALBUMIN/GLOBULIN RATIO 1.6 (1.0-2.2); BILIRUBIN,TOTAL 0.6 mg/dL (0.2-1.0); CALCIUM 9.6 mg/dL (8.5-10.3); CREATININE 0.9 mg/dL (0.6-1.3); POTASSIUM 3.9 mmol/L (3.5-4.5); TOTAL PROTEIN 7.3 g/dL (6.4-8.9)
[2024-03-01 00:13] VITALS: BP 145/57; O2SAT 98
--- NOTE | 2024-03-01 01:01 | ED Physician Documentation ---
History of Present Illness - Stated complaint Stated Complaint: POST OP PX/ - Chief complaint Chief Complaint: General - History obtained from History obtained from: Patient - Additonal information Additional information: 68-year-old woman presents to the emergency department status post colonoscopy today with concern of 2 episodes of bright red blood per rectum. Colonoscopy was performed at [facility] and she states they removed multiple polyps. Otherwise uncomplicated procedure. Denies dizziness, abdominal pain, fever or other symptoms. PD PAST MEDICAL HISTORY - Past Medical History Past Medical History: Yes Cardiovascular: Hypertension, High cholesterol Respiratory: COPD Neuro: None Endocrine/Autoimmune: Type 2 diabetes GI: Other FILM CRITIC: None : Other HEENT: None Psych: None Musculoskeletal: None Derm: None - Past Surgical History Past Surgical History: Yes General: Appendectomy, Other /FILM CRITIC: Hysterectomy, Oophrectomy, Other Cardiovascular: Other HEENT: Tonsil/Adenoidectomy - Present Medications Home Medications: Ambulatory Orders Medication Instructions Recorded Confirmed Aspirin [Aspirin EC] 81 mg PO DAILY 08/19/20 02/29/24 Rosuvastatin Calcium [Crestor] 20 mg PO DAILY 08/19/20 02/29/24 Sertraline [Zoloft] 50 mg PO DAILY 08/19/20 02/29/24 Furosemide [Lasix] 20 - 40 mg PO DAILY 04/22/23 02/29/24 Lisinopril [Zestril] 40 mg PO DAILY 04/22/23 02/29/24 Cholecalciferol [Vitamin D3] 800 unit PO DAILY #30 tab 04/25/23 02/29/24 Metoprolol Succinate [Toprol Xl] 100 mg PO DAILY 02/29/24 02/29/24 Potassium Chloride [Klor-Con M20] 20 meq PO DAILY 02/29/24 02/29/24 amLODIPine [Norvasc] 5 mg PO DAILY 02/29/24 02/29/24 - Allergies Allergies/Adverse Reactions: Allergies Allergy/AdvReac Type Severity Reaction Status Date / Time No Known Drug Allergies Allergy Verified 02/29/24 21:55 - Social History Does the pt smoke?: No Smoking Status: Never smoker Does the pt drink ETOH?: Yes Does the pt have substance abuse?: No - Immunizations Immunizations are current?: Yes - POLST Patient has POLST: No POLST Status: Full Code PD ED PE NORMAL - Vitals Vital signs reviewed: Yes - General General: Alert and oriented X 3, No acute distress, Well developed/nourished - HEENT HEENT: Atraumatic, PERRL, EOMI - Neck Neck: Supple, no meningeal sign - Cardiac Cardiac: RRR - Respiratory Respiratory: No respiratory distress, Clear bilaterally - Abdomen Abdomen: Non tender, Non distended - Derm Derm: Normal color, Warm and dry - Extremities Extremities: No deformity Results - Vitals Vitals: Vital Signs - 24 hr 02/29/24 03/01/24 21:48 00:00 Temperature 36.2 C L Heart Rate 67 62 Respiratory 17 16 Rate Blood Pressure 149/65 H 145/57 H O2 Saturation 97 98 Oxygen O2 Source Room air - Labs Labs: Laboratory Tests 02/29/24 02/29/24 22:08 22:08 WBC 8.3 RBC 4.20 Hgb 13.2 Hct 40.7 MCV 96.9 MCH 31.4 H MCHC 32.4 RDW 13.2 Plt Count 154 MPV 9.8 Neut # (Auto) 5.9 Lymph # (Auto) 1.7 [place] # (Auto) 0.5 Eos # (Auto) 0.2 Baso # (Auto) 0.0 Absolute Nucleated RBC 0.00 Nucleated RBC % 0.0 Sodium 137 Potassium 3.9 Chloride 107 Carbon Dioxide 22 Anion Gap 8.0 BUN 25 H Creatinine 0.9 Estimated GFR (MDRD) 63 L Glucose 122 H Calcium 9.6 Total Bilirubin 0.6 AST 19 ALT 21 Alkaline Phosphatase 41 L Total Protein 7.3 Albumin 4.5 Globulin 2.8 Albumin/Globulin Ratio 1.6 Lipase 66 PD Medical Decision Making - ED course ED course: 68-year-old woman presents status post colonoscopy with bright red blood per rectum. Her hemoglobin is normal here in the emergency department. She is asymptomatic. Return precautions were discussed and she will follow-up outpatient with her visual and stock associate. Departure - Departure Disposition: 01 Home, Self Care Clinical Impression: Bright red blood per rectum Condition: Stable Instructions: ED Hematochezia Stable Comments: You were seen in the emergency department for rectal bleeding. Your hemoglobin, which is a measure of your blood level, was normal. Please follow-up with your GI doctor and return to the emergency department if you have any new or worsening symptoms or other concerns.
== END 2024-03-01 01:00 | disposition home or self-care (01) ==
LOC: ED 21:43
DX: K62.5 Hemorrhage of anus and rectum (principal); I10 Essential (primary) hypertension; E78.00 Pure hypercholesterolemia, unspecified; J44.9 Chronic obstructive pulmonary disease, unspecified; E11.9 Type 2 diabetes mellitus without complications; Z79.899 Other long term (current) drug therapy; Z79.82 Long term (current) use of aspirin
CPT/HCPCS: 36415; 80053; 83690; 85025; 99283